=== PATIENT | male | born 1945 | race Caucasian/White ===

== ENCOUNTER 2024-04-08 10:19 | Emergency (ER) | payer OTHER, SELFPAY ==
[2024-04-08] VITALS (10 sets, daily range): BP systolic 141–177; BP diastolic 67–82; PULSE 53–66; RESP 17–18; TEMP 36.6–37; O2SAT 95–99
--- NOTE | 2024-04-08 11:05 | DI.US.S_ITS ---
PROCEDURE: US PERIPH VENOUS LOW EXTREM BI INDICATIONS: swelling TECHNIQUE: Real-time imaging, as well as color and pulse Doppler interrogation, were performed of the deep veins of both legs from the inguinal ligament to the popliteal fossa, with documentation of the visualized calf veins. COMPARISON: None. FINDINGS: Right: The common femoral, femoral, popliteal, and the visualized calf veins are normally compressible, and free of intraluminal thrombus. Color and pulse Doppler demonstrate normal phasic intravascular flow. There is normal augmentation response to distal compression maneuver. Left: The common femoral, femoral, popliteal, and the visualized calf veins are normally compressible, and free of intraluminal thrombus. Color and pulse Doppler demonstrate normal phasic intravascular flow. There is normal augmentation response to distal compression maneuver. IMPRESSION: No findings of deep venous thrombosis in either lower extremity. Dictated by: Marc Alvarez M.D. on 04/08/2024 at 12:13 Approved by: Marc Alvarez M.D. on 04/08/2024 at 12:14
--- NOTE | 2024-04-08 11:07 | DI.RAD.S_ITS ---
PROCEDURE: XR KNEE LT 3V INDICATIONS: fall TECHNIQUE: 3 views of the knee were acquired. COMPARISON: None. FINDINGS: Bones: No fractures or dislocations. 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 No significant patellar subluxation. No suspicious bony lesions. Soft tissues: No significant joint effusion. No suspicious soft tissue calcifications. IMPRESSION: No acute left knee fracture or dislocation. Yvag-ii-qtepjfwn tricompartmental osteoarthritis. No significant joint effusion. Dictated by: Hermes Garrison M.D. on 04/08/2024 at 11:41 Approved by: Hermes Garrison M.D. on 04/08/2024 at 11:42
--- NOTE | 2024-04-08 11:07 | DI.RAD.S_ITS ---
PROCEDURE: XR ANKLE LT MIN 3V INDICATIONS: fall TECHNIQUE: 3 views of the ankle were acquired. COMPARISON: None. FINDINGS: Bones: No fractures or dislocations. Cloj-qv-payyecuo osteoarthritic changes are noted throughout midfoot and hindfoot joints. Ankle mortise is normally aligned. Small plantar and dorsal calcaneal enthesophytes are seen. No suspicious bony lesions. Soft tissues: No tibiotalar joint effusion. Achilles tendon appears normal. IMPRESSION: No acute ankle fracture or dislocation. Gkfx-fy-vadjmfhm midfoot and hindfoot joint osteoarthritis. Tiny plantar and dorsal calcaneal enthesophytes. Dictated by: Hermes Garrison M.D. on 04/08/2024 at 11:40 Approved by: Hermes Garrison M.D. on 04/08/2024 at 11:41
--- NOTE | 2024-04-08 11:08 | DI.RAD.S_ITS ---
PROCEDURE: XR FOOT LT MIN 3V INDICATIONS: fall TECHNIQUE: 3 views of the foot were acquired. COMPARISON: None. FINDINGS: Bones: No fractures or dislocations. Osteoarthritic changes are noted throughout left foot. Tiny plantar and dorsal calcaneal enthesophytes are seen. No suspicious bony lesions. Soft tissues: No tibiotalar joint effusion. Achilles tendon appears normal. IMPRESSION: No acute left foot fracture or dislocation. Left foot osteoarthritis. Tiny plantar and dorsal calcaneal enthesophytes. Dictated by: Hermes Garrison M.D. on 04/08/2024 at 11:42 Approved by: Hermes Garrison M.D. on 04/08/2024 at 11:43
--- NOTE | 2024-04-08 13:32 | ED_ITS ---
HPI - Extremity Injury (Lower) General Chief Complaint: Extremity Injury, Lower Stated Complaint: Both legs are swelling , Left leg is worse Time Seen by Provider: 04/08/24 12:26 Source: patient, RN notes reviewed and old records reviewed Mode of arrival: Ambulatory Limitations: no limitations History of Present Illness HPI Narrative: 79-year-old male with a history of hypertension, denies any history of diabetes, bilateral lower extremity edema and chronic wound that were treated between November and February 2023 with a weepy bilateral legs and treated by wound care until healed. Doing well until he fell about 2 weeks ago onto his left leg causing some injury to the left knee ankle and foot. Since then has had increased swelling and has been painful to ambulate. States he is now starting to have more swelling on both sides they are starting to weep again. No fevers or chills no chest pain or shortness of breath. Patient states no nausea or vomiting. No GI or urinary symptoms. They has been continuing to do compression stockings daily followed by a premade wrap for each leg. They state he has had some increased swelling after his and probably scraped the back of his leg causing a new wound which has been slowly worsening. Patient has noticed some clear drainage but nothing purulent. He states it is painful. Patient states little bit of discomfort when he weightbears with his knee but he was able to walk without much issue. Denies any new or other trauma or injuries. Patient states he was following with Wound Care at another facility for several months. Sounds like they placed Unaboot bilaterally and had about 3 weeks of oral antibiotics initially but did not ever require IV antibiotics or persistent oral antibiotics. [facility]. Related Data Previous Rx's Medication Instructions Recorded bacitracin zinc 500 unit-polymyxin 1 applic topical DAILY #28.3 grams 04/08/24 B 10,000 unit/gram topical ointment (Poly Bacitracin (zinc)) doxycycline hyclate 100 mg tablet 100 mg PO BID #20 tabs 04/08/24 hydrochlorothiazide 25 mg tablet 50 mg (2 x 25 mg) PO DAILY 5 days 04/08/24 #10 tabs Allergies Allergy/AdvReac Type Severity Reaction Status Date / Time iodine Allergy Severe Anaphylaxis Verified 04/08/24 11:12 Review of Systems Review of Systems ROS Unobtainable: All systems reviewed & are unremarkable except as noted in HPI and below Patient History Social History Smoking Status: Never smoker Smoking Status: Never smoker alcohol intake frequency: 0-2 drinks per day Substance Use Type: does not use Exam Narrative Exam Narrative: GENERAL: Alert and oriented x three, mild distress HEENT: Head normocephalic, atraumatic, EOMI, pupils reactive, face symmetric, moist mucous membranes NECK: Supple, full range of motion CARDIOVASCULAR: Regular rate and rhythm without murmurs, rubs or gallops. RESPIRATORY: Breath sounds equal bilaterally, no wheezes rales or rhonchi. ABDOMEN: Soft, nontender. Normoactive bowel sounds all 4 quadrants. No guarding or rebound, rigidity, no mass : No CVA tenderness EXTREMITIES: Normal range of motion, no clubbing. Bilateral lower extremity edema, so some slight erythema bilaterally with some appear to be chronic venous stasis changes with hyperpigmentation and purple discoloration. Patient's left calf has a little bit of a superficial the top layer of the skin has been removed there was no ulceration into the deeper subcutaneous fat. Patient is slightly tender to touch. There is a scant amount of serosanguineous drainage. Neurovascularly intact. 2+ dorsalis pedis bilateral feet. Patient has equal sensation to touch in bilateral feet but states it is decreased in both feet. Full range of motion. NEUROLOGICAL: Cranial nerves II through XII grossly intact. Moving all extremities SKIN: Warm, dry, no petechiae, no rashes or lesions other than noted above. Initial Vital Signs Initial Vital Signs: Vital Signs Temperature 97.8 F 04/08/24 10:35 Pulse Rate 59 L 04/08/24 10:35 Respiratory Rate 17 04/08/24 10:35 Blood Pressure 171/77 H 04/08/24 10:35 Pulse Oximetry 98 04/08/24 10:35 Oxygen Delivery Method Room Air 04/08/24 10:35 Course Orders Ordered: ED Orders 04/08/24 11:05 US periph venous low extrem bi Stat 04/08/24 11:07 XR ankle LT min 3V Stat XR knee LT 3V Stat 04/08/24 11:08 XR foot LT min 3V Stat 04/08/24 14:00 Wound Culture and Gram Stain Stat Discontinued Medications Bacitracin (Bacitracin Oint 0.9 Gm Pckt) 2 applic TOP NOW ONE Stop: 04/08/24 13:51 Last Admin: 04/08/24 14:11 Dose: 2 applic Documented By: TC Vital Signs Vital signs: Vital Signs - 8 hr 04/08/24 11:00 04/08/24 11:01 04/08/24 11:01 Temperature Pulse Rate 55 L 56 L Respiratory Rate Blood Pressure 141/67 H Pulse Oximetry 95 97 Oxygen Delivery Method 04/08/24 11:30 04/08/24 11:30 04/08/24 12:00 Temperature Pulse Rate 56 L 56 L Respiratory Rate Blood Pressure 154/81 H Pulse Oximetry 97 98 Oxygen Delivery Method 04/08/24 12:00 04/08/24 12:30 04/08/24 12:30 Temperature Pulse Rate 55 L Respiratory Rate Blood Pressure 164/77 H 177/82 H Pulse Oximetry 99 Oxygen Delivery Method 04/08/24 13:00 04/08/24 14:11 Temperature 98.6 F Pulse Rate 53 L 58 L Respiratory Rate 18 Blood Pressure 177/82 H Pulse Oximetry 99 98 Oxygen Delivery Method Room Air MDM - Extremity Injury (Lower) Imaging Data US - DVT: Radiologist's Impression: Jaspreet Chacon??79??M??1945 ? Allergy/Adv: iodine Close Foot X-Ray (Signed) Hermes Garrison - 04/08/24 Knee X-Ray (Signed) Hermes Garrison - 04/08/24 Ankle X-Ray (Signed) Hermes Garrison - 04/08/24 Vascular Ultrasound (Signed) Marc Alvarez - 04/08/24 Launch?[place] [address] Ultrasound Report Signed Patient: Jaspreet Chacon MR#: [id number] : 1945 Acct:[id number] Age/Sex: 79 / M Date of Service: 04/08/24 Loc: ED Accession Number: [id number] Procedure: US periph venous low extrem bi Ordering Provider: Jailyn Taveras D.O. PROCEDURE: US PERIPH VENOUS LOW EXTREM BI INDICATIONS: swelling TECHNIQUE: Real-time imaging, as well as color and pulse Doppler interrogation, were performed of the deep veins of both legs from the inguinal ligament to the popliteal fossa, with documentation of the visualized calf veins. COMPARISON: None. FINDINGS: Right: The common femoral, femoral, popliteal, and the visualized calf veins are normally compressible, and free of intraluminal thrombus. Color and pulse Doppler demonstrate normal phasic intravascular flow. There is normal augmentation response to distal compression maneuver. Left: The common femoral, femoral, popliteal, and the visualized calf veins are normally compressible, and free of intraluminal thrombus. Color and pulse Doppler demonstrate normal phasic intravascular flow. There is normal augmentation response to distal compression maneuver. IMPRESSION: No findings of deep venous thrombosis in either lower extremity. Dictated by: Marc Alvarez M.D. on 04/08/2024 at 12:13 Approved by: Marc Alvarez M.D. on 04/08/2024 at 12:14 [facility] Narrative Medical decision making narrative: 79-year-old male with acute on chronic bilateral lower extremity edema p articularly after scraping his leg has a little bit of a wound. He has been doing compression stockings with wrap around them that is premade. He states that is since he has had the abrasion he has not been able to do these has had increased swelling and some breakdown of the skin. Patient appears nontoxic no systemic symptoms. DVT ultrasound bilateral lower extremities is negative X-ray ankle is negative for acute fracture or dislocation [id number] midfoot and hindfoot joint osteoarthritis tiny plantar and dorsal calcaneal enthesophytes. X-ray knee no acute left fracture dislocation [id number] tricompartmental osteoarthritis no significant joint effusion. X-ray foot no acute left foot fracture dislocation left foot osteoarthritis tiny plantar calcaneal enthesophytes. Wound culture was obtained, patient has a superficial skin breakdown but no large ulcer or wound noted. There is some serous drainage. Wound was dressed with bacitracin, patient had dressing placed. Refer to wound care locally. Patient does take HCTZ 25 mg daily so we will give a short course of increased see if this will help with his edema as well. Discussed return precautions all questions answered. Patient family feel comfortable with the plan. faxed form to wound care with patient contact/information. Discharge Plan Departure Patient Disposition: Home Clinical Impression: Bilateral edema of lower extremity, Leg wound, left Activity Restrictions/Additional Instructions: Follow up with wound care, please call today or tomorrow to set up a follow up appointment. Use bacitracin to the affected area on your left lower extremity with dressing changes. Take oral antibiotics until completed. Increase your hydrochlorothiazide 2 tablets or 50 mg once daily x 5 days. Prescriptions sent to [facility] in [place]. Please return for fevers increasing swelling, any foul or purulent drainage, increasing pain, new chest pain or shortness of breath or other new or concerning changes. Prescriptions: New bacitracin zinc-polymyxin B [Poly Bacitracin (zinc)] 500-10,000 unit/gram ointment 1 applic topical DAILY Qty: 28.3 0RF doxycycline hyclate 100 mg tablet 100 mg PO BID Qty: 20 0RF hydrochlorothiazide 25 mg tablet 50 mg PO DAILY 5 Days Qty: 10 0RF Referrals: Tony Hunter MD [Physician] - Stand Alone Forms: Patient Portal/API/Survey
[2024-04-08] MEDS: BACITRACIN OINT 0.9 GM PCKT 2 APPLIC TOP (14:11)
--- NOTE | 2024-04-08 14:27 | PC.NURSE ---
[facility] [place] Note: Referral to Wound Care and demographics faxed.
== END 2024-04-08 14:12 | disposition home or self-care (01) ==
PROVIDERS: Emergency Provider Emergency Medicine
DX: R60.0 Localized edema (principal); S81.802A Unspecified open wound, left lower leg, initial encounter
CPT/HCPCS: 73562; 73610; 73630; 87070; 87075; 87077; 87147; 87186; 87205; 93970; 99282; 99284

== ENCOUNTER 2024-04-20 09:09 | Emergency (ER) | payer OTHER, SELFPAY ==
[2024-04-20] VITALS (13 sets, daily range): BP systolic 113–153; BP diastolic 54–70; PULSE 50–70; RESP 16–17; TEMP 36.6; O2SAT 97–99; BMI 31.1
--- NOTE | 2024-04-20 10:12 | PC.NURSE ---
Addendum entered by Stefanie Nichols R.N. 04/20/24 10:16: No previously known MRSA or staph infection. Original Note: left lower leg swelling, redness, and weeping. Redness and swelling noted n right lower leg as well. Edema noted in bilateral feet as well. Pt states this problem has been going on for a couple of years but has worsened over the past 2-4 weeks. Pt states they are suppose to see wound care but has not heard back in a couple weeks. Pt denies fevers.
[2024-04-20 10:18] LABS: Add Manual Diff / Slide Review NO; Basophils Absolute Auto 100 /uL (0-100); Basophils Percent Auto 1.4 % (0-2); Eosinophils Absolute Auto 500 /uL (0-450); Eosinophils Percent Auto 9.3 % (2-4); Hematocrit 34.5 % (41-53); Hemoglobin 11.7 g/dL (13.5-17.5); Lymphocytes Absolute Auto 1200 /uL (1100-4500); Mean Corpuscular HGB Conc 33.9 % (30-36); Mean Corpuscular Hemoglobin 32.5 PG (26-34); Mean Corpuscular Volume 95.9 fL (80-100); Monocytes Absolute Auto 500 /uL (0-900); Monocytes Percent Auto 8.5 % (3-14); Neutrophils Absolute Auto 3500 /uL (1500-7000); Neutrophils Percent Auto 60.8 % (50-75); Platelet Count 203 X10^3/uL (150-400); Red Blood Cell Count 3.59 X10^6/uL (4.5-5.9); Red Cell Distribution Width 12.7 % (11.6-14.8); White Blood Cell Count 5.8 X10^3/uL (4.5-11.0)
[2024-04-20 10:29] LABS: Alanine Aminotransferase 22 IU/L (<50); Albumin 3.9 g/dL (3.5-5.0); Albumin Globulin Ratio 1.5 (1.0-2.8); Alkaline Phosphatase 82 U/L (38-126); Aspartate Aminotransferase 24 IU/L (17-59); BUN Creatinine Ratio 24.5 (6-22); Bilirubin Total 0.6 mg/dL (0.2-1.3); Blood Urea Nitrogen 36 mg/dL (9-20); Calcium 8.7 mg/dL (8.4-10.2); Carbon Dioxide 20 mmol/L (22-32); Chloride 108 mmol/L (98-107); Estimated Glomerular Filt Rate 49 mL/min (>60); Globulin 2.6 g/dL (1.7-4.1); Glucose 117 mg/dL (80-110); HEMOLYSIS < 15 (0-50); Potassium 4.1 mmol/L (3.4-5.1); Sodium 138 mmol/L (137-145); Total Protein 6.5 g/dL (6.3-8.2)
--- NOTE | 2024-04-20 11:13 | ED_ITS ---
HPI - Skin/Abscess/Foreign Bdy <Malathi Ventura PA-C - Last Filed: 04/20/24 20:12> General Chief complaint: Skin/Abscess/Foreign Body Stated complaint: Left leg lesions growing Time Seen by Provider: 04/20/24 11:10 Source: patient and family Mode of arrival: Family Vehicle History of Present Illness HPI narrative: This is a 79-year-old patient with a history of chronic bilateral lower extremity edema and previous episodes of lower extremity jarrett wounds presenting today with concern for jarrett wounds and pain not getting better at all despite taking antibiotics a few weeks ago. Patient states over the last 3 days he feels the pain in his left leg in his skin of his jarrett and inside of his leg has worsened significantly. To the point where he has limited ambulation in the last 3 days. He states last night he started having pain in the arch of his foot on the inside feels like a sharp pain that is intermittent. He has not sure if anything makes it worse or better. He denies any recent fevers, chills, nausea, vomiting, diarrhea or other symptoms and states he has otherwise been in his usual state of health. His states he has had a similar episode that took weeks to heal with regular trips to wound care. And has chronic problems with his lower extremities in terms of edema and skin discoloration /changes. She has been Re bandaging his leg twice daily. They had a referral placed to wound care at their ER visit about 12 days ago, they state they heard from them once and were told they would get a call back but have not received any call back. Related Data Previous Rx's Medication Instructions Recorded bacitracin zinc 500 unit-polymyxin 1 applic topical DAILY #28.3 grams 04/08/24 B 10,000 unit/gram topical ointment (Poly Bacitracin (zinc)) doxycycline hyclate 100 mg tablet 100 mg PO BID #20 tabs 04/08/24 Allergies Allergy/AdvReac Type Severity Reaction Status Date / Time iodine Allergy Severe Anaphylaxis Verified 04/20/24 09:44 Review of Systems <Malathi Ventura PA-C - Last Filed: 04/20/24 20:12> Review of Systems Narrative: See HPI Patient History <Malathi Ventura PA-C - Last Filed: 04/20/24 20:12> Social History Smoking Status: Never smoker Smoking Status: Never smoker alcohol intake frequency: 0-2 drinks per day Exam <Malathi Ventura PA-C - Last Filed: 04/20/24 20:12> Narrative Exam Narrative: GENERAL: [79] year old patient appears stated age. Well-developed patient, in mild distress. HEAD: Atraumatic. Normocephalic. EYES: Pupils equal round and reactive. Extraocular motions intact. No scleral icterus. No injection or drainage. ENT: Nose without bleeding, purulent drainage. Airway patent. NECK: Trachea midline. Non tender CARDIOVASCULAR: Regular rate and rhythm without murmurs, gallops, or rubs. RESPIRATORY: Clear to auscultation. Breath sounds equal bilaterally. No wheezes, rales, or rhonchi. GASTROINTESTINAL: Abdomen soft, non-tender, nondistended. EXTREMITIES: Chronic venous stasis changes of the shins bilaterally and around the lower calves. Purplish erythematous skin present. More pronounced on the left lower extremity. The left lower extremity from the knee down is notably swollen as compared to the right. There is tenderness with light touch with palpation and mild erythema present proximal to the chronic venous stasis changes. Also on the medial aspect of the calf there are multiple small approximately 1 cm blisters with serosanguineous appearing fluid present, and a few of these are unroofed. Patient has tenderness with palpation under the arch of the foot/midfoot on the medial aspect. Reduced range of motion at the ankle 2nd to calf pain. No edema or joint tenderness. NEURO: AOx3. SKIN: No rash or erythema of visible areas Initial Vital Signs Initial Vital Signs: Vital Signs Pulse Rate 70 04/20/24 09:34 Blood Pressure 139/64 04/20/24 09:34 Pulse Oximetry 97 04/20/24 09:34 <Jailyn Taveras DO - Last Filed: 05/06/24 04:17> Initial Vital Signs Initial Vital Signs: Vital Signs Pulse Rate 70 04/20/24 09:34 Blood Pressure 139/64 04/20/24 09:34 Pulse Oximetry 97 04/20/24 09:34 Course <Malathi Ventura PA-C - Last Filed: 04/20/24 20:12> Course Course Narrative: Did discuss the patient with the attending physician who had previously seen him about 2 weeks ago for similar concern. She agrees with plan for Augmentin and strong encouragement for close wound care follow-up. Orders Ordered: ED Orders 04/20/24 12:09 XR foot LT min 3V Stat Vital Signs Vital signs: Vital Signs - 8 hr 04/20/24 12:30 04/20/24 12:31 04/20/24 12:31 Pulse Rate 52 L 52 L Respiratory Rate Blood Pressure 113/54 L Pulse Oximetry 99 99 Oxygen Delivery Method 04/20/24 13:00 04/20/24 13:01 04/20/24 13:01 Pulse Rate 53 L 52 L Respiratory Rate 17 Blood Pressure 145/67 H Pulse Oximetry 99 99 Oxygen Delivery Method Room Air <Jailyn Taveras DO - Last Filed: 05/06/24 04:17> Orders Ordered: ED Orders 04/20/24 12:09 XR foot LT min 3V Stat Vital Signs Vital signs: Vital Signs - 8 hr 04/20/24 12:30 04/20/24 12:31 04/20/24 12:31 Pulse Rate 52 L 52 L Respiratory Rate Blood Pressure 113/54 L Pulse Oximetry 99 99 Oxygen Delivery Method 04/20/24 13:00 04/20/24 13:01 04/20/24 13:01 Pulse Rate 53 L 52 L Respiratory Rate 17 Blood Pressure 145/67 H Pulse Oximetry 99 99 Oxygen Delivery Method Room Air MDM - Skin/Abscess/Foreign Bdy <Malathi Ventura PA-C - Last Filed: 04/20/24 20:12> Differential Diagnosis Differential diagnosis: Likely abscess of skin or subcutaneous tissue, cellulitis, contact dermatitis and other (Chronic venous stasis changes) Medical Records Attestation: I reviewed the patient's medical records. Lab Data Attestation: I reviewed the patient's lab results. 04/20/24 10:05 04/20/24 10:05 Labs: Lab Results 04/20/24 Range/Units 10:05 WBC 5.8 (4.5-11.0) X10^3/uL RBC 3.59 L (4.5-5.9) X10^6/uL Hgb 11.7 L (13.5-17.5) g/dL Hct 34.5 L (41-53) % MCV 95.9 (80-100) fL MCH 32.5 (26-34) PG MCHC 33.9 (30-36) % RDW 12.7 (11.6-14.8) % Plt Count 203 (150-400) X10^3/uL Neut % (Auto) 60.8 (50-75) % Lymph % (Auto) 20.0 L (25-40) % [place] % (Auto) 8.5 (3-14) % Eos % (Auto) 9.3 H (2-4) % Baso % (Auto) 1.4 (0-2) % Neut # (Auto) 3500 (8904-3183) /uL Lymph # (Auto) 1200 (8372-1767) /uL [place] # (Auto) 500 (0-900) /uL Eos # (Auto) 500 H (0-450) /uL Baso # (Auto) 100 (0-100) /uL Sodium 138 (137-145) mmol/L Potassium 4.1 (3.4-5.1) mmol/L Chloride 108 H (98-107) mmol/L Carbon Dioxide 20 L (22-32) mmol/L BUN 36 H (9-20) mg/dL Creatinine 1.47 H (0.66-1.25) mg/dL Estimated GFR 49 L (>60) mL/min BUN/Creatinine Ratio 24.5 H (6-22) Glucose 117 H (80-110) mg/dL Calcium 8.7 (8.4-10.2) mg/dL Total Bilirubin 0.6 (0.2-1.3) mg/dL AST 24 (17-59) IU/L ALT 22 (<50) IU/L Alkaline Phosphatase 82 (38-126) U/L Total Protein 6.5 (6.3-8.2) g/dL Albumin 3.9 (3.5-5.0) g/dL Globulin 2.6 (1.7-4.1) g/dL Albumin/Globulin Ratio 1.5 (1.0-2.8) Imaging Data Extremity x-ray #1: My Impression: Agree with Radiology interpretation Radiologist's Impression: [address] [address] XRay Report Signed Patient: Jaspreet Chacon MR#: [id number] : 1945 Acct:[id number] Age/Sex: 79 / M Date of Service: 04/20/24 Loc: ED Accession Number: [id number] Procedure: XR foot LT min 3V Ordering Provider: Malathi Ventura PA-C PROCEDURE: XR FOOT LT MIN 3V INDICATIONS: acute mid foot pain; chronic inflammation/edema LE+celluliti TECHNIQUE: 3 views of the foot were acquired. COMPARISON: [facility], CR, XR FOOT LT MIN 3V, 04/08/2024, 11:05. FINDINGS: Bones: No fractures or dislocations. No suspicious bony lesions. Tiny calcaneal and Achilles insertional enthesophytes are shown. There are mild degenerative changes of the dorsal midfoot. There is no cortical erosion or periostitis. Soft tissues: No tibiotalar joint effusion. Achilles tendon appears normal. IMPRESSION: No acute bony abnormality. Specifically, no evidence of osteomyelitis. Dictated by: Jackie Smith M.D. on 04/20/2024 at 11:31 Approved by: Jackie Smith M.D. on 04/20/2024 at 11:32 MDM Narrative Medical decision making narrative: 79-year-old male presents with with concern for leg infection not improving despite taking antibiotics 2 weeks ago. Exam is notable for chronic venous stasis changes and what appears to be evidence of persistent cellulitis. Patient was prescribed doxycycline about 12 days ago which she reports taking in its entirety. Has not been able to perform regular compression dressings of his extremity due to pain for the last few weeks. Did have an ultrasound that was negative for DVT when he was seen in the ER 12 days ago at that time he also was having the same calf pain and swelling. This was not repeated today. Labs today are unremarkable. His vitals and history do not suggest sepsis or severe infection. He did have a new tenderness in his midfoot and x-rays obtained which showed no evidence of osteomyelitis or explanation for his pain. Discussed in detail with the patient and his the importance of persistence with accessing wound care. Provided them again with office numbers and provider numbers to contact. And recommend they call back on Monday 1st thing to work on getting him scheduled. Prescription today for Augmentin as his exam is concerning for persistent cellulitis. Repeat wound cultures not obtained, wound culture from 12 days ago showed staph aureus sensitive to common anti staphylococcal antibiotics. Return precautions provided, follow-up plan discussed, all questions answered. <Jailyn Amrita Taveras, DO - Last Filed: 05/06/24 04:17> Lab Data Labs: Lab Results 04/20/24 Range/Units 10:05 WBC 5.8 (4.5-11.0) X10^3/uL RBC 3.59 L (4.5-5.9) X10^6/uL Hgb 11.7 L (13.5-17.5) g/dL Hct 34.5 L (41-53) % MCV 95.9 (80-100) fL MCH 32.5 (26-34) PG MCHC 33.9 (30-36) % RDW 12.7 (11.6-14.8) % Plt Count 203 (150-400) X10^3/uL Neut % (Auto) 60.8 (50-75) % Lymph % (Auto) 20.0 L (25-40) % [place] % (Auto) 8.5 (3-14) % Eos % (Auto) 9.3 H (2-4) % Baso % (Auto) 1.4 (0-2) % Neut # (Auto) 3500 (9516-7616) /uL Lymph # (Auto) 1200 (0606-1106) /uL [place] # (Auto) 500 (0-900) /uL Eos # (Auto) 500 H (0-450) /uL Baso # (Auto) 100 (0-100) /uL Sodium 138 (137-145) mmol/L Potassium 4.1 (3.4-5.1) mmol/L Chloride 108 H (98-107) mmol/L Carbon Dioxide 20 L (22-32) mmol/L BUN 36 H (9-20) mg/dL Creatinine 1.47 H (0.66-1.25) mg/dL Estimated GFR 49 L (>60) mL/min BUN/Creatinine Ratio 24.5 H (6-22) Glucose 117 H (80-110) mg/dL Calcium 8.7 (8.4-10.2) mg/dL Total Bilirubin 0.6 (0.2-1.3) mg/dL AST 24 (17-59) IU/L ALT 22 (<50) IU/L Alkaline Phosphatase 82 (38-126) U/L Total Protein 6.5 (6.3-8.2) g/dL Albumin 3.9 (3.5-5.0) g/dL Globulin 2.6 (1.7-4.1) g/dL Albumin/Globulin Ratio 1.5 (1.0-2.8) Discharge Plan Departure Patient Disposition: Home Clinical Impression: Cellulitis of left anterior lower leg, Chronic venous stasis dermatitis of both lower extremities, Pain of left midfoot Activity Restrictions/Additional Instructions: *You have been diagnosed with [chronic venous stasis, cellulitis of left lower extremity, left midfoot pain] *What to do: *Please continue to take your regular medications as directed. [1 ] New medication prescriptions sent to your pharmacy: [ Augmentin] [ ] New medication written as a paper prescription [ ] No new medications given *Please follow up with your primary care provider in 2-3 days, call for an appointment. Let them know you were seen in the Emergency Department and that we ask that you be seen in follow up. We will electronically transmit a record of today's note if your PCP is in our system. We took an x-ray of your foot today to further evaluate the potential cause of your pain there. We do not see any concerning signs for infection of the bone. And no definite cause for the source of your new midfoot pain. Your jarrett does still appear likely infected, and I am placing you on another round of antibiotics, a different antibiotic this time. Based on the wound culture obtained at your visit in the ER a few weeks ago it should have been sensitive to the antibiotic you were previously prescribed, however sometimes when you have chronic venous stasis changes healing does take a great deal of time. It is very important that you get into see wound care I would strongly recommend that you call them on Monday morning and reiterate that you were seen in the emergency department again and need to get in to get scheduled and start having regular wound care. We did check some basic labs today and these looked good. I strongly recommend that you add acetaminophen/Tylenol to your pain regimen. You can alternate this with ibuprofen or take them together. Please make sure you are not taking more ibuprofen than the maximum recommended daily dose which I believe is 3200mg. I have included contact information for wound care below. I am not sure which office you contacted previously there are 2 numbers below. Please call them Monday morning. I am placing on new antibiotics that are different than the ones you had previously, however I do feel as we discussed that you are not likely to heal very well without wound care. I hope this begins to improve for you soon. *If you do not have a primary care provider please contact the [facility] Resource line at [phone]. They will ask some questions about your medical history and help get you set up with a doctor in the community. *Return to Emergency Department if you should have any new, worsening or concerning symptoms, such as [fever greater than 101 F, shaking chills, worsening pain, persistent vomiting or other bothersome symptoms] Prescriptions: No Action bacitracin zinc-polymyxin B [Poly Bacitracin (zinc)] 500-10,000 unit/gram ointment 1 applic topical DAILY Qty: 28.3 0RF doxycycline hyclate 100 mg tablet 100 mg PO BID Qty: 20 0RF Referrals: Navin Patel MD [Physician] - (chronic venous stasis with persistent wounds/cellulitis) Tony Hunter MD [Physician] - Stand Alone Forms: Patient Portal/API/Survey ED Sign-out <Jailyn Taveras DO - Last Filed: 05/06/24 04:17> Cosign ED Attending Costyreseature Attestation: I was immediately available in the department for consultation.
--- NOTE | 2024-04-20 12:09 | DI.RAD.S_ITS ---
PROCEDURE: XR FOOT LT MIN 3V INDICATIONS: acute mid foot pain; chronic inflammation/edema LE+celluliti TECHNIQUE: 3 views of the foot were acquired. COMPARISON: [facility], , XR FOOT LT MIN 3V, 04/08/2024, 11:05. FINDINGS: Bones: No fractures or dislocations. No suspicious bony lesions. Tiny calcaneal and Achilles insertional enthesophytes are shown. There are mild degenerative changes of the dorsal midfoot. There is no cortical erosion or periostitis. Soft tissues: No tibiotalar joint effusion. Achilles tendon appears normal. IMPRESSION: No acute bony abnormality. Specifically, no evidence of osteomyelitis. Dictated by: Jackie Smith M.D. on 04/20/2024 at 11:31 Approved by: Jackie Smith M.D. on 04/20/2024 at 11:32
== END 2024-04-20 13:48 | disposition home or self-care (01) ==
PROVIDERS: Emergency Medicine; Emergency Provider Student in an Organized Health Care Education/Training Program
DX: L03.116 Cellulitis of left lower limb (principal); I87.2 Venous insufficiency (chronic) (peripheral); M79.672 Pain in left foot
CPT/HCPCS: 73630; 80053; 85025; 99283; 99284

== ENCOUNTER → 2024-04-25 09:31 | Outpatient (CLI) | payer OTHER, SELFPAY | PROVIDERS: PCP Nurse Practitioner; Referring Provider Emergency Medicine; Visit Provider Surgery | DX: L97.822 Non-pressure chronic ulcer of other part of left lower leg with fat layer exposed (principal); I87.2 Venous insufficiency (chronic) (peripheral); R60.0 Localized edema; L03.116 Cellulitis of left lower limb; M79.662 Pain in left lower leg; I25.10 Atherosclerotic heart disease of native coronary artery without angina pectoris; Z79.2 Long term (current) use of antibiotics | CPT/HCPCS: 11042; 99203; 99213 ==

== ENCOUNTER → 2024-04-29 08:48 | Outpatient (CLI) | payer OTHER, SELFPAY | PROVIDERS: PCP Nurse Practitioner; Referring Provider Emergency Medicine; Visit Provider Physician Assistant | DX: L97.822 Non-pressure chronic ulcer of other part of left lower leg with fat layer exposed (principal); I87.2 Venous insufficiency (chronic) (peripheral); R60.0 Localized edema; M79.662 Pain in left lower leg | CPT/HCPCS: 29581 ==

== ENCOUNTER → 2024-05-06 10:53 | Outpatient (CLI) | payer OTHER, SELFPAY | PROVIDERS: PCP Nurse Practitioner; Referring Provider Emergency Medicine; Visit Provider Surgery | DX: L97.322 Non-pressure chronic ulcer of left ankle with fat layer exposed (principal); I87.2 Venous insufficiency (chronic) (peripheral); R60.0 Localized edema; L53.9 Erythematous condition, unspecified | CPT/HCPCS: 11042; 87070; 87075; 87205; 99213 ==

== ENCOUNTER → 2024-05-10 15:40 | Outpatient (CLI) | payer OTHER, SELFPAY | PROVIDERS: PCP Nurse Practitioner; Referring Provider Nurse Practitioner; Visit Provider Physician Assistant | DX: L97.321 Non-pressure chronic ulcer of left ankle limited to breakdown of skin (principal); I87.2 Venous insufficiency (chronic) (peripheral); L53.9 Erythematous condition, unspecified; R60.0 Localized edema | CPT/HCPCS: 99212 ==

== ENCOUNTER → 2024-05-14 14:47 | Outpatient (CLI) | payer OTHER, SELFPAY | PROVIDERS: PCP Nurse Practitioner; Referring Provider Nurse Practitioner; Visit Provider Surgery | DX: L97.322 Non-pressure chronic ulcer of left ankle with fat layer exposed (principal); L97.812 Non-pressure chronic ulcer of other part of right lower leg with fat layer exposed; I87.2 Venous insufficiency (chronic) (peripheral); R60.0 Localized edema; R23.4 Changes in skin texture | CPT/HCPCS: 11042; 11045; 99213 ==

== ENCOUNTER 2024-05-15 00:45 | Emergency (ER) | payer OTHER, SELFPAY ==
[2024-05-15] VITALS (10 sets, daily range): BP systolic 76–117; BP diastolic 39–81; PULSE 59–79; RESP 16–22; TEMP 36.5; O2SAT 92–98; BMI 31.1
--- NOTE | 2024-05-15 00:56 | EKG_ITS ---
[place] [id number] [place] [id number] Test Date: 2024-05-15 Pat Name: Jaspreet Chacon Department: [facility] Room: Gender: Male Division [employer] Superintendent: NALLELY : 1945 Requested By: Order Number: [id number] Reading MD: Leandro Garnett MD Measurements Intervals [place] Rate: 75 P: 22 WV: 286 QRS: -14 QRSD: 86 T: 35 QT: 412 QTc: 460 Interpretive Statements Sinus rhythm with sinus arrhythmia with 1st degree AV block with occasional premature ventricular complexes Inferior infarct , age undetermined Cannot rule out Anterior infarct , age undetermined NO PRIOR TRACING Electronically Signed On 05-15-2024 6:40:52 PST by Leandro Garnett MD
--- NOTE | 2024-05-15 01:03 | DI.RAD.S_ITS ---
PROCEDURE: XR CHEST 1V INDICATIONS: chest pain TECHNIQUE: One view of the chest was acquired. COMPARISON: None. FINDINGS: Surgical changes and devices: None. Lungs and pleura: Lungs are clear. No pleural effusions or pneumothorax. Mediastinum: Mediastinal contours appear normal. Heart size is enlarged. Bones and chest wall: No suspicious bony lesions. Overlying soft tissues appear unremarkable. IMPRESSION: No acute cardiopulmonary pathology. Dictated by: Hermes Garrison M.D. on 05/15/2024 at 1:32 Approved by: Hermes Garrison M.D. on 05/15/2024 at 1:36
[2024-05-15 01:18] LABS: Add Manual Diff / Slide Review NO; Basophils Absolute Auto 100 /uL (0-100); Eosinophils Absolute Auto 700 /uL (0-450); Eosinophils Percent Auto 11.4 % (2-4); Hemoglobin 10.7 g/dL (13.5-17.5); Lymphocytes Absolute Auto 1400 /uL (1100-4500); Lymphocytes Percent Auto 21.8 % (25-40); Mean Corpuscular HGB Conc 34.5 % (30-36); Mean Corpuscular Hemoglobin 32.8 PG (26-34); Mean Corpuscular Volume 95.1 fL (80-100); Monocytes Absolute Auto 700 /uL (0-900); Monocytes Percent Auto 10.3 % (3-14); Neutrophils Absolute Auto 3500 /uL (1500-7000); Neutrophils Percent Auto 55.5 % (50-75); Platelet Count 186 X10^3/uL (150-400); Red Blood Cell Count 3.26 X10^6/uL (4.5-5.9); Red Cell Distribution Width 13.4 % (11.6-14.8); White Blood Cell Count 6.3 X10^3/uL (4.5-11.0)
[2024-05-15 01:26] LABS: INR 1.1 (0.9-1.3)
[2024-05-15 01:29] LABS: PTT Partial Thromboplastin Tim 28 SECONDS (25.1-36.5)
[2024-05-15 01:31] LABS: Alanine Aminotransferase 21 IU/L (<50); Albumin 3.7 g/dL (3.5-5.0); Albumin Globulin Ratio 1.4 (1.0-2.8); Alkaline Phosphatase 78 U/L (38-126); Aspartate Aminotransferase 25 IU/L (17-59); Bilirubin Total 0.4 mg/dL (0.2-1.3); Blood Urea Nitrogen 30 mg/dL (9-20); Calcium 8.7 mg/dL (8.4-10.2); Carbon Dioxide 23 mmol/L (22-32); Chloride 105 mmol/L (98-107); Creatine Kinase 141 U/L (55-170); Estimated Glomerular Filt Rate 50 mL/min (>60); Globulin 2.7 g/dL (1.7-4.1); Glucose 123 mg/dL (80-110); HEMOLYSIS < 15 (0-50); Lipase 62 U/L (23-300); Magnesium 1.7 mg/dL (1.6-2.3); Potassium 3.8 mmol/L (3.4-5.1); Sodium 134 mmol/L (137-145); Total Protein 6.4 g/dL (6.3-8.2)
[2024-05-15] MEDS: ASPIRIN 81 MG CHEW TAB 324 MG PO (01:35)
[2024-05-15 01:42] LABS: NT-proBNP (BNP-Adult 18+) 196 pg/mL (<450); Troponin I < 0.012 ng/mL (0.01-0.034)
--- NOTE | 2024-05-15 02:40 | ED.CHESTPAIN ---
HPI - Chest Pain General Chief Complaint: Chest Pain Stated Complaint: thinks heart attack Time Seen by Provider: 05/15/24 01:04 Source: patient and family Mode of arrival: Wheelchair Limitations: no limitations History of Present Illness HPI narrative: 79-year-old male with history of coronary artery disease, chronic lower extremity edema (followed by wound care) presents by from home by private vehicle for chest pain. Patient states that around midnight while he was reading in bed he felt lower left-sided chest pain that went down words into his abdomen. He was concerned that he may be having a heart attack. Patient took 6 nitroglycerin tablets and woke his up to bring him to the ER. On arrival patient was noted to be hypotensive, feeling slightly lightheaded. Related Data Previous Rx's Medication Instructions Recorded bacitracin zinc 500 unit-polymyxin 1 applic topical DAILY #28.3 grams 04/08/24 B 10,000 unit/gram topical ointment (Poly Bacitracin (zinc)) doxycycline hyclate 100 mg tablet 100 mg PO BID #20 tabs 04/08/24 Allergies Allergy/AdvReac Type Severity Reaction Status Date / Time iodine Allergy Severe Anaphylaxis Verified 04/20/24 09:44 Patient History Social History Smoking Status: Never smoker Smoking Status: Never smoker alcohol intake frequency: 0-2 drinks per day Exam Initial Vital Signs Initial Vital Signs: Vital Signs Temperature 97.7 F 05/15/24 00:55 Pulse Rate 79 05/15/24 00:55 Respiratory Rate 16 05/15/24 00:55 Blood Pressure 76/39 L 05/15/24 00:55 Pulse Oximetry 98 05/15/24 00:55 Oxygen Delivery Method Room Air 05/15/24 00:55 Const: Awake, alert, no acute distress, nontoxic appearing Cardiac: regular rate, regular rhythm RESP: unlabored, clear bilaterally, no wheezing GI: Soft, midepigastric and left upper quadrant tenderness to deep palpation without rebound or guarding MSK: Bilateral lower extremities wrapped in bandages from wound care Skin: Warm, Dry, intact, no rashes Neuro: AO x3, CN II-XII grossly intact, moves all extremities Course Orders Ordered: Discontinued Medications Aspirin (Aspirin 81 Mg Chew Tab) 324 mg PO NOW ONE Stop: 05/15/24 01:04 Last Admin: 05/15/24 01:35 Dose: 324 mg Documented By: SABAS Vital Signs Vital signs: Vital Signs - 8 hr 05/15/24 00:55 05/15/24 01:19 05/15/24 01:31 Temperature 97.7 F Pulse Rate 79 65 61 Respiratory Rate 16 17 18 Blood Pressure 76/39 L 103/57 L Pulse Oximetry 98 96 95 Oxygen Delivery Method Room Air Room Air 05/15/24 01:32 05/15/24 01:32 05/15/24 02:00 Temperature Pulse Rate 61 61 Respiratory Rate 17 17 Blood Pressure 99/51 L Pulse Oximetry 92 94 Oxygen Delivery Method 05/15/24 02:00 05/15/24 02:30 05/15/24 02:30 Temperature Pulse Rate 59 L Respiratory Rate 20 Blood Pressure 107/52 L 106/55 L Pulse Oximetry 94 Oxygen Delivery Method 05/15/24 03:00 05/15/24 03:00 05/15/24 03:21 Temperature Pulse Rate 64 63 Respiratory Rate 17 20 Blood Pressure 112/54 L Pulse Oximetry 94 Oxygen Delivery Method 05/15/24 03:21 05/15/24 03:30 05/15/24 03:30 Temperature Pulse Rate 61 Respiratory Rate 22 Blood Pressure 117/81 111/56 L Pulse Oximetry 94 Oxygen Delivery Method 05/15/24 04:00 05/15/24 04:00 Temperature Pulse Rate 67 Respiratory Rate 18 Blood Pressure 114/57 L Pulse Oximetry 94 Oxygen Delivery Method MDM - Chest Pain Differential Diagnosis Differential diagnosis: Likely stable angina, unstable angina pectoris and atypical chest pain Lab Data 05/15/24 01:11 05/15/24 01:11 Labs: Lab Results 05/15/24 05/15/24 Range/Units 01:11 03:18 WBC 6.3 (4.5-11.0) X10^3/uL RBC 3.26 L (4.5-5.9) X10^6/uL Hgb 10.7 L (13.5-17.5) g/dL Hct 31.0 L (41-53) % MCV 95.1 (80-100) fL MCH 32.8 (26-34) PG MCHC 34.5 (30-36) % RDW 13.4 (11.6-14.8) % Plt Count 186 (150-400) X10^3/uL Neut % (Auto) 55.5 (50-75) % Lymph % (Auto) 21.8 L (25-40) % [place] % (Auto) 10.3 (3-14) % Eos % (Auto) 11.4 H (2-4) % Baso % (Auto) 1.0 (0-2) % Neut # (Auto) 3500 (6916-7259) /uL Lymph # (Auto) 1400 (5516-3452) /uL [place] # (Auto) 700 (0-900) /uL Eos # (Auto) 700 H (0-450) /uL Baso # (Auto) 100 (0-100) /uL PT 13.0 H (9.4-12.5) SECONDS INR 1.1 (0.9-1.3) APTT 28 (25.1-36.5) SECONDS Sodium 134 L (137-145) mmol/L Potassium 3.8 (3.4-5.1) mmol/L Chloride 105 (98-107) mmol/L Carbon Dioxide 23 (22-32) mmol/L BUN 30 H (9-20) mg/dL Creatinine 1.43 H (0.66-1.25) mg/dL Estimated GFR 50 L (>60) mL/min BUN/Creatinine Ratio 21.0 (6-22) Glucose 123 H (80-110) mg/dL Calcium 8.7 (8.4-10.2) mg/dL Magnesium 1.7 (1.6-2.3) mg/dL Total Bilirubin 0.4 (0.2-1.3) mg/dL AST 25 (17-59) IU/L ALT 21 (<50) IU/L Alkaline Phosphatase 78 (38-126) U/L Total Creatine Kinase 141 (55-170) U/L Troponin I < 0.012 < 0.012 (0.01-0.034) ng/mL NT-Pro-B Natriuret Pep 196 (<450) pg/mL Total Protein 6.4 (6.3-8.2) g/dL Albumin 3.7 (3.5-5.0) g/dL Globulin 2.7 (1.7-4.1) g/dL Albumin/Globulin Ratio 1.4 (1.0-2.8) Lipase 62 (23-300) U/L Imaging Data CT scan - abdomen/pelvis: Radiologist's Impression: PROCEDURE: CT ABDOMEN PELVIS WO CON INDICATIONS: upper abd pain TECHNIQUE: Axial sections were acquired from the lung bases to the pubic symphysis. Coronal and sagittal reformats were performed. For radiation dose reduction, the following was used: automated exposure control, adjustment of mA and/or kV according to patient size. COMPARISON: None. FINDINGS: Image quality: Diagnostic. Lower Chest: Three-vessel coronary artery calcifications. URINARY: Right Kidney: No stones or hydronephrosis. Right Ureter: No hydroureter. Left Kidney: No stones or hydronephrosis. Left Ureter: No hydroureter. Bladder: Normal wall thickness. No stones. ABDOMEN: Liver: No contour-deforming solid mass. Gallbladder: Cholecystectomy. Biliary ducts: No biliary dilation. Pancreas: No ductal dilation. Spleen: Size is within normal limits. Adrenal Glands: No adrenal nodules. Stomach and Bowel: Normal colonic caliber, without significant wall thickening. Normal appendix. Colonic diverticulosis without evidence of diverticulitis. Peritoneum: No abnormal intraperitoneal fluid. No free air. Ventral Wall: No hernia. Abdominal Nodes: No enlarged retroperitoneal or mesenteric lymph nodes. Vessels: Aorta and inferior vena cava are normal in size. PELVIS: Pelvic Organs: Penile prosthesis. Pelvic Nodes: Unremarkable. Miscellaneous: No inguinal hernias are seen. Bones: Degenerative disc disease of the lumbar spine. IMPRESSION: No obstructing stones or hydronephrosis. Colonic diverticulosis without evidence of diverticulitis. Normal appendix. Cholecystectomy. Agree with preliminary report. Dictated by: Marc Alvarez M.D. on 05/15/2024 at 7:11 Approved by: Marc Alvarez M.D. on 05/15/2024 at 7:13 ECG Data Interpretation: Normal sinus rhythm at 75 beats per minute. First-degree AV block present. No ST depressions MDM Narrative Medical decision making narrative: Patient with left lower chest pain. Noted to be hypotensive on arrival, however patient reports that he took 6 nitroglycerin tablets prior to arrival. After being taken to ED bed and laid down patient's blood pressure slowly improved to normal limits. Patient denying abdominal pain, however on exam he was tender in his midepigastric and left upper quadrant regions. Patient's chest pain could have possible GI component. Heart score 4 based on patient's age and risk factors, however story is less suspicious for ACS at this time. Labs reviewed, no significant abnormalities identified. CT shows constipation, no other acute findings. Troponin undetectable x2. Patient has been pain free since arrival to the ED. patient and informed of all lab and imaging findings. Patient relieved to know that it was not appear that he was suffering an ongoing heart attack at this time. ED return precautions discussed with the patient and at bedside. PCP follow up advised. Discharge Plan Departure Patient Disposition: Home Clinical Impression: Chest pain Instructions: DI for Chest Pain Activity Restrictions/Additional Instructions: Your EKG, lab work, and chest x-ray today are normal. I do not know the cause of your chest pain but it does not appear to be a heart attack at this time. I ordered a CT scan due to pain in your abdomen, this showed that you are constipated, but I do not see any other cause of your symptoms at this time. Follow up with your primary care doctor. If you exhibit any new or worsening symptoms please feel free to return to the emergency department for repeat evaluation. Prescriptions: No Action bacitracin zinc-polymyxin B [Poly Bacitracin (zinc)] 500-10,000 unit/gram ointment 1 applic topical DAILY Qty: 28.3 0RF doxycycline hyclate 100 mg tablet 100 mg PO BID Qty: 20 0RF Referrals: Tierney Grant ARNP [Primary Care Provider] - Stand Alone Forms: Patient Portal/API/Survey
[2024-05-15 03:51] LABS: Troponin I < 0.012 ng/mL (0.01-0.034)
== END 2024-05-15 04:30 | disposition home or self-care (01) ==
PROVIDERS: Emergency Provider Emergency Medicine; PCP Nurse Practitioner
DX: R07.9 Chest pain, unspecified (principal); I95.9 Hypotension, unspecified; R10.13 Epigastric pain; R10.12 Left upper quadrant pain
CPT/HCPCS: 36415; 71045; 74176; 80053; 82550; 83690; 83735; 83880; 84484; 85025; 85610; 85730; 93005; 93010; 99284

== ENCOUNTER → 2024-05-16 15:01 | Outpatient (CLI) | payer OTHER, SELFPAY | PROVIDERS: PCP Nurse Practitioner; Referring Provider Emergency Medicine; Visit Provider Surgery | DX: L97.321 Non-pressure chronic ulcer of left ankle limited to breakdown of skin (principal); L97.811 Non-pressure chronic ulcer of other part of right lower leg limited to breakdown of skin; I87.2 Venous insufficiency (chronic) (peripheral); R60.0 Localized edema | CPT/HCPCS: 29581 ==

== ENCOUNTER → 2024-05-21 14:26 | Outpatient (CLI) | payer OTHER, SELFPAY | PROVIDERS: PCP Nurse Practitioner; Referring Provider Emergency Medicine; Visit Provider Surgery | DX: L97.322 Non-pressure chronic ulcer of left ankle with fat layer exposed (principal); L97.812 Non-pressure chronic ulcer of other part of right lower leg with fat layer exposed; I87.2 Venous insufficiency (chronic) (peripheral); R60.0 Localized edema | CPT/HCPCS: 11042; 29581 ==

== ENCOUNTER → 2024-05-23 10:42 | Outpatient (CLI) | payer OTHER, SELFPAY | PROVIDERS: PCP Nurse Practitioner; Referring Provider Emergency Medicine; Visit Provider Surgery | DX: L97.321 Non-pressure chronic ulcer of left ankle limited to breakdown of skin (principal); L97.811 Non-pressure chronic ulcer of other part of right lower leg limited to breakdown of skin; I87.2 Venous insufficiency (chronic) (peripheral); R60.0 Localized edema | CPT/HCPCS: 29580 ==

== ENCOUNTER → 2024-05-27 14:21 | Outpatient (CLI) | payer OTHER, SELFPAY | PROVIDERS: PCP Nurse Practitioner; Referring Provider Emergency Medicine; Visit Provider Surgery | DX: I87.2 Venous insufficiency (chronic) (peripheral) (principal); R60.0 Localized edema | CPT/HCPCS: 29580; 99213 ==

== ENCOUNTER → 2024-06-03 11:13 | Outpatient (CLI) | payer OTHER, SELFPAY | PROVIDERS: PCP Nurse Practitioner; Referring Provider Emergency Medicine; Visit Provider Surgery | DX: I87.2 Venous insufficiency (chronic) (peripheral) (principal); L30.9 Dermatitis, unspecified | CPT/HCPCS: 29580; 99213 ==

== ENCOUNTER → 2024-06-10 15:03 | Outpatient (CLI) | payer OTHER, SELFPAY | PROVIDERS: PCP Nurse Practitioner; Referring Provider Emergency Medicine; Visit Provider Surgery | DX: I87.2 Venous insufficiency (chronic) (peripheral) (principal) | CPT/HCPCS: 99211; 99213 ==

== ENCOUNTER → 2024-06-18 15:25 | Outpatient (CLI) | payer OTHER, SELFPAY | PROVIDERS: PCP Nurse Practitioner; Referring Provider Emergency Medicine; Visit Provider Surgery | DX: I87.2 Venous insufficiency (chronic) (peripheral) (principal); L97.822 Non-pressure chronic ulcer of other part of left lower leg with fat layer exposed; L98.8 Other specified disorders of the skin and subcutaneous tissue; L53.8 Other specified erythematous conditions; L97.312 Non-pressure chronic ulcer of right ankle with fat layer exposed | CPT/HCPCS: 11042; 87070; 87075; 87205; 99213 ==

== ENCOUNTER → 2024-06-21 11:10 | Outpatient (CLI) | payer OTHER, SELFPAY | PROVIDERS: PCP Nurse Practitioner; Referring Provider Emergency Medicine; Visit Provider Physician Assistant | DX: L97.822 Non-pressure chronic ulcer of other part of left lower leg with fat layer exposed (principal); L97.312 Non-pressure chronic ulcer of right ankle with fat layer exposed; I87.2 Venous insufficiency (chronic) (peripheral); L53.9 Erythematous condition, unspecified; R60.0 Localized edema; L08.89 Other specified local infections of the skin and subcutaneous tissue; Z79.2 Long term (current) use of antibiotics | CPT/HCPCS: 29580 ==

== ENCOUNTER → 2024-06-24 11:56 | Outpatient (CLI) | payer OTHER, SELFPAY ==
--- NOTE | 2024-06-24 11:57 | DI.US.S_ITS ---
PROCEDURE: US VENOUS INSUFFICIENCY BILAT INDICATIONS: Non-healing ulcer of LLE TECHNIQUE: Real time scanning was performed of the lower extremity venous system, with imaging documentation, as well as Color and pulse Doppler interrogation. COMPARISON: None. FINDINGS: RIGHT LOWER EXTREMITY: The deep veins are normally compressible, and free of intraluminal thrombus. Color and pulse Doppler demonstrate normal intravascular flow. There is normal augmentation with distal compression maneuver. Deep venous reflux within the mid femoral vein and common femoral vein. Greater saphenous vein (GSV): Saphenofemoral junction (SFJ): 8 mm. Reflux 2.4 seconds. Proximal GSV: 4 mm. Reflux 1.1 seconds. Mid GSV: 3 mm. Reflux 2.5 seconds. Distal GSV: 3 mm. Reflux 0.9 seconds. Calf GSV: 3 mm. Less than 0.5 seconds. Anterior accessory GSV (AAGSV): Proximal AAGSV: 4 mm. Reflux 0.5 seconds. Mid AAGSV: 3 mm. Reflux 0.9 seconds. Distal GSV: 1 mm. No reflux. Small saphenous vein (SSV): Posterior calf, draining into popliteal vein. Posterior calf: 4 mm. Reflux 0.5 seconds. Vein of Giacomini (posterior thigh connection between GSV and SSV): Anatomic variant not seen. Ladies Underwear Operator veins: Location calf, diameter 2 mm. Reflux 0.7 seconds. LEFT LOWER EXTREMITY: The deep veins are normally compressible, and free of intraluminal thrombus. Color and pulse Doppler demonstrate normal intravascular flow. There is normal augmentation with distal compression maneuver. Deep venous reflux within the common femoral vein. Greater saphenous vein (GSV): Saphenofemoral junction (SFJ): 7 mm. Reflux 2.2 seconds. Proximal GSV: 5 mm. No reflux. Mid GSV: 3 mm. Reflux 0.6 seconds. Distal GSV: 4 mm. Reflux 0.6 seconds. Calf GSV: 3 mm. Reflux 0.7 seconds. Anterior accessory GSV (AAGSV): Proximal AAGSV: 3 mm. No reflux. Small saphenous vein (SSV): Posterior calf, draining into popliteal vein. Posterior calf: 4 mm. Reflux 0.7 seconds. Vein of Giacomini (posterior thigh connection between GSV and SSV): SSP compliance attorney mid measuring 5 mm. Reflux 1.1 seconds. Ladies Underwear Operator veins: Location calf, diameter 4 mm. Less than 0.5 seconds. IMPRESSION: 1. Right lower extremity deep venous reflux within the common femoral vein and femoral vein. Reflux within the greater saphenous, short saphenous, and compliance attorney veins. 2. Left lower extremity deep venous reflux within the common femoral vein. Reflux within the greater saphenous and short saphenous veins. Dictated by: Nghia Sanon M.D. on 06/24/2024 at 16:33 Approved by: Nghia Sanon M.D. on 06/24/2024 at 16:49
== END ==
PROVIDERS: PCP Nurse Practitioner; Referring Provider Surgery; Visit Provider Surgery
DX: I87.322 Chronic venous hypertension (idiopathic) with inflammation of left lower extremity (principal); L97.322 Non-pressure chronic ulcer of left ankle with fat layer exposed; L97.822 Non-pressure chronic ulcer of other part of left lower leg with fat layer exposed; I87.2 Venous insufficiency (chronic) (peripheral)
CPT/HCPCS: 93970

== ENCOUNTER → 2024-06-25 09:51 | Outpatient (CLI) | payer OTHER, SELFPAY | PROVIDERS: PCP Nurse Practitioner; Referring Provider Emergency Medicine; Visit Provider Surgery | DX: L97.822 Non-pressure chronic ulcer of other part of left lower leg with fat layer exposed (principal); I87.2 Venous insufficiency (chronic) (peripheral); L97.312 Non-pressure chronic ulcer of right ankle with fat layer exposed; L53.9 Erythematous condition, unspecified; R60.0 Localized edema; L30.9 Dermatitis, unspecified; M79.662 Pain in left lower leg; M25.571 Pain in right ankle and joints of right foot | CPT/HCPCS: 11042 ==

== ENCOUNTER → 2024-06-28 14:51 | Outpatient (CLI) | payer OTHER, SELFPAY | PROVIDERS: PCP Nurse Practitioner; Referring Provider Nurse Practitioner; Visit Provider Surgery | DX: I87.2 Venous insufficiency (chronic) (peripheral) (principal); L97.822 Non-pressure chronic ulcer of other part of left lower leg with fat layer exposed; L97.312 Non-pressure chronic ulcer of right ankle with fat layer exposed; L53.8 Other specified erythematous conditions; L98.8 Other specified disorders of the skin and subcutaneous tissue; R23.4 Changes in skin texture; R60.0 Localized edema | CPT/HCPCS: 29580 ==

== ENCOUNTER → 2024-07-02 09:34 | Outpatient (CLI) | payer OTHER, SELFPAY | PROVIDERS: PCP Nurse Practitioner; Referring Provider Emergency Medicine; Visit Provider Surgery | DX: I87.2 Venous insufficiency (chronic) (peripheral) (principal); L97.822 Non-pressure chronic ulcer of other part of left lower leg with fat layer exposed; L97.312 Non-pressure chronic ulcer of right ankle with fat layer exposed; L53.8 Other specified erythematous conditions; L98.8 Other specified disorders of the skin and subcutaneous tissue | CPT/HCPCS: 97602; 99213 ==

== ENCOUNTER → 2024-07-05 09:36 | Outpatient (CLI) | payer OTHER, SELFPAY | PROVIDERS: PCP Nurse Practitioner; Referring Provider Nurse Practitioner; Visit Provider Physician Assistant | DX: I87.2 Venous insufficiency (chronic) (peripheral) (principal); L97.822 Non-pressure chronic ulcer of other part of left lower leg with fat layer exposed; L97.312 Non-pressure chronic ulcer of right ankle with fat layer exposed; L53.8 Other specified erythematous conditions; L98.8 Other specified disorders of the skin and subcutaneous tissue; R60.0 Localized edema; R23.4 Changes in skin texture | CPT/HCPCS: 29580 ==

== ENCOUNTER → 2024-07-09 10:50 | Outpatient (CLI) | payer OTHER, SELFPAY | PROVIDERS: PCP Nurse Practitioner; Referring Provider Emergency Medicine; Visit Provider Surgery | DX: I87.2 Venous insufficiency (chronic) (peripheral) (principal); I10 Essential (primary) hypertension | CPT/HCPCS: 29580; 99213 ==

== ENCOUNTER → 2024-07-12 09:55 | Outpatient (CLI) | payer OTHER, SELFPAY | PROVIDERS: PCP Nurse Practitioner; Referring Provider Emergency Medicine; Visit Provider Physician Assistant | DX: I87.2 Venous insufficiency (chronic) (peripheral) (principal) | CPT/HCPCS: 29580 ==

== ENCOUNTER → 2024-07-16 10:17 | Outpatient (CLI) | payer OTHER, SELFPAY ==
--- NOTE | 2024-07-16 | OV.WND_ITS ---
PROGRESS NOTE DETAILS PATIENT NAME: SAJNIV CRAMER PATIENT NUMBER: [id number] CLINICIAN: DONOVAN AGUERO PATIENT DATE OF : 1945 PHYSICIAN / OFFICE SWEEPER: SUSAN PATRICK PATIENT SUBJECTIVE CHIEF COMPLAINT THIS INFORMATION WAS OBTAINED FROM THE PATIENT. NONE EDEMA LOWER LEGS ALLERGIES IODINE (SEVERITY: SEVERE, REACTION: ANAPHYLAXIS) HPI THIS INFORMATION WAS OBTAINED FROM THE PATIENT. THE FOLLOWING HPI ELEMENTS WERE DOCUMENTED FOR THE PATIENT'S WOUND: LOCATION: BLE DURATION: 06/05/24 CONTEXT: VENOUS THE PATIENT IS A 79-YEAR-OLD MALE WITH CAD AND CHRONIC VENOUS INSUFFICIENCY WHO RETURNS TODAY FOR FOLLOW UP OF RECURRENT VENOUS ULCERS INVOLVING MEDIAL RIGHT ANKLE AND LEFT LOWER EXTREMITY. PATIENT HAS BEEN RECEIVING DRESSING CHANGES WITH [employer]NA BOOTS. ON TODAY'S VISIT THE PATIENT IS WITHOUT COMPLAINTS. THE PATIENT HAS A PRIOR HISTORY OF HAVING VENOUS ULCERS ON BOTH LOWER EXTREMITIES. THE PATIENT REPORTS A GOOD APPETITE AND DENIES HAVING ANY OTHER RECENT CHANGES IN HIS OVERALL HEALTH. ABIS WERE 1.21 ON THE LEFT AND 1.22 ON THE RIGHT. ON EXAM TODAY THE ULCERS REMAIN HEALED AND THE PERIWOUND SKIN LOOKS GOOD, MILD STASIS DERMATITIS. HE HAS NOT YET MADE AN APPOINTMENT WITH VASCULAR SURGERY. LABS: 06/24/24: VENOUS ULTRASOUND: RIGHT LOWER EXTREMITY DEEP VENOUS REFLUX WITHIN THE COMMON FEMORAL VEIN AND FEMORAL VEIN. REFLUX WITHIN THE GREATER SAPHENOUS, SHORT SAPHENOUS, AND TOWN ADMINISTRATOR VEINS. LEFT LOWER EXTREMITY DEEP VENOUS REFLUX WITHIN THE COMMON FEMORAL VEIN. REFLUX WITHIN THE GREATER SAPHENOUS AND SHORT SAPHENOUS VEINS. 06/18/24: CULTURE GREW SCANT GROWTH MIXED SKIN TIM 05/06/24: CULTURE NEGATIVE 04/20/24: WBC 5.8, HEMOGLOBIN 11.7, HCT 34.5, ELECTROLYTES UNREMARKABLE, BUN 36, CREATININE 1.47, GFR 49, LFTS NORMAL 04/20/24: X-RAY LEFT FOOT SHOWED NO EVIDENCE FOR OSTEOMYELITIS 04/08/24: CULTURE LEFT LEG GREW STAPHYLOCOCCUS AUREUS 04/08/24: VENOUS ULTRASOUND SHOWED NO EVIDENCE FOR DVT IN EITHER LOWER EXTREMITY OBJECTIVE VITALS HEIGHT/LENGTH: 72 IN (182.88 CM), WEIGHT: 239.9 LBS (109.05 KGS), BMI: 32.5, TEMPERATURE: 98.2 ?F SANJIV CRAMER [id number] 1945 (36.78 ?C), PULSE: 63 BPM, RESPIRATORY RATE: 18 BREATHS/MIN, BLOOD PRESSURE: 145/75 MMHG, PULSE OXIMETRY: 97 %. PHYSICAL EXAM CONSTITUTIONAL: VITAL SIGNS REVIEWED AND NOTED. WELL DEVELOPED, WELL NOURISHED, AND IN NO ACUTE DISTRESS. ALERT AND ORIENTED X3. RESPIRATORY: EVEN RESPIRATIONS WITHOUT USE OF ACCESSORY MUSCLES. NO INTERCOASTAL RETRACTIONS NOTED. EVEN AND NON LABORED RESPIRATION. INTEGUMENTARY (HAIR, SKIN): MILD STASIS DERMATITIS. MILD LOWER EXTREMITY SWELLING. SEE WOUND ASSESSMENT. SKIN WARM AND DRY. NO RASHES. NEUROLOGICAL: SENSATION: SYMMETRIC FUNCTION BY INFORMAL OBSERVATION. PSYCHIATRIC: ORIENTATION TO TIME, PLACE AND PERSON: NORMAL AFFECT WITH NORMAL THOUGHT PATTERN. ASSESSMENT ACTIVE PROBLEMS ICD-10 (ENCOUNTER DIAGNOSIS) L97.822 - NON-PRESSURE CHRONIC ULCER OF OTHER PART OF LEFT LOWER LEG WITH FAT LAYER EXPOSED (ENCOUNTER DIAGNOSIS) L97.312 - NON-PRESSURE CHRONIC ULCER OF RIGHT ANKLE WITH FAT LAYER EXPOSED (ENCOUNTER DIAGNOSIS) I87.333 - CHRONIC VENOUS HYPERTENSION (IDIOPATHIC) WITH ULCER AND INFLAMMATION OF BILATERAL LOWER EXTREMITY GENERAL NOTES VENOUS ULCER LEFT MEDIAL LEFT ANKLE HEALED VENOUS ULCERS RIGHT LOWER EXTREMITY HEALED THE FOLLOWING FACTORS HAVE BEEN IDENTIFIED THAT MAY AFFECT WOUND HEALING: DEVITALIZED TISSUE BIOFILM INFECTION SWELLING VENOUS INSUFFICIENCY GOALS REMOVE DEVITALIZED TISSUE REMOVE AND PREVENT BIOFILM REDUCE SWELLING TREAT INFECTION REDUCE PAIN WOUND CLOSURE PREVENT RECURRENCE PLAN: USE VELCRO WRAPS FOR COMPRESSION, DAILY SKIN INSPECTIONS, MAKE APPOINTMENT WITH VASCULAR SURGERY, FOLLOW UP AT WOUND CENTER NEEDED. PLAN ADDITIONAL ORDERS: HAND HYGIENE SANJIV CRAMER [id number] 1945 HAND HYGIENE - WASH HANDS BEFORE AND AFTER WOUND CARE. CALL THE WOUND CENTER AT [phone] IF YOU HAVE SIGNS OR SYMPTOMS OF INFECTION, FEVER CHILLS OR SHAKES, INCREASED DRAINAGE, INCREASED ODOR OR UNUSUAL REDNESS. AFTER WOUND CENTER HOURS PLEASE NOTIFY YOUR PCP OR GO TO THE EMERGENCY ROOM. CLEANSER OTHER ORDER: - MAY SHOWER. WOUNDS HEALED. DRESSING ORDERS OTHER ORDER: - NO DRESSING NEEDED. WOUNDS HEALED. COMPRESSION/EDEMA CONTROL ELEVATE LEG(S) ABOVE THE LEVEL OF THE HEART MUCH POSSIBLE. AVOID STANDING IN ONE POSITION FOR MORE THAN 10 MINUTES. AVOID SITTING WITH LEGS DOWN. DO NOT CROSS LEGS WHEN SITTING. APPLY STOCKINGS/WRAPS IN MORNING AND REMOVE AT BEDTIME. - CIRCAID JUXTALITE WRAPS APPLIED TO BOTH LEGS. FOLLOW-UP APPOINTMENTS DISCHARGE FROM OUTPATIENT SERVICES. OTHER ORDERS: - PLEASE FOLLOW UP WITH VASCULAR SCRIBING ATTESTATION I ATTEST, THE NURSE, THAT I SCRIBED THESE ORDERS FOR THE WOUND CARE PROVIDER. PROVIDER REVIEW AND ATTESTATION: REVIEWED AND EVALUATED LABS. REVIEWED HOSPITAL RECORDS. DISCUSSED THE PLAN OF CARE @ BEDSIDE WITH - THE PATIENT AND I AGREE AND ATTEST TO THE ABOVE INFORMATION PROVIDED FROM OTHER LICENSED PROFESSIONALS. ELECTRONIC SIGNATURE(S) SIGNED BY: DATE: SUSAN PATRICK MD 07/17/2024 16:19:23 (PT) ENTERED BY: SUSAN PATRICK MD ON 07/16/2024 12:21:50 (PT) SANJIV CRAMER [id number] 1945
== END ==
PROVIDERS: PCP Nurse Practitioner; Referring Provider Emergency Medicine; Visit Provider Surgery
DX: I87.2 Venous insufficiency (chronic) (peripheral) (principal)
CPT/HCPCS: 99211; 99213

== ENCOUNTER → 2024-08-08 11:32 | Outpatient (CLI) | payer OTHER, SELFPAY | PROVIDERS: PCP Nurse Practitioner; Referring Provider Nurse Practitioner; Visit Provider Surgery | DX: I87.333 Chronic venous hypertension (idiopathic) with ulcer and inflammation of bilateral lower extremity (principal); L97.311 Non-pressure chronic ulcer of right ankle limited to breakdown of skin; L97.321 Non-pressure chronic ulcer of left ankle limited to breakdown of skin | CPT/HCPCS: 29581; 99213 ==

== ENCOUNTER → 2024-08-13 14:17 | Outpatient (CLI) | payer OTHER, SELFPAY | PROVIDERS: PCP Nurse Practitioner; Referring Provider Nurse Practitioner; Visit Provider Physician Assistant | DX: I87.2 Venous insufficiency (chronic) (peripheral) (principal); L97.811 Non-pressure chronic ulcer of other part of right lower leg limited to breakdown of skin; L97.821 Non-pressure chronic ulcer of other part of left lower leg limited to breakdown of skin | CPT/HCPCS: 29581 ==

== ENCOUNTER → 2024-08-16 13:38 | Outpatient (CLI) | payer OTHER, SELFPAY | PROVIDERS: PCP Nurse Practitioner; Referring Provider Nurse Practitioner; Visit Provider Physician Assistant | DX: I87.2 Venous insufficiency (chronic) (peripheral) (principal); L97.821 Non-pressure chronic ulcer of other part of left lower leg limited to breakdown of skin; L97.811 Non-pressure chronic ulcer of other part of right lower leg limited to breakdown of skin; L53.8 Other specified erythematous conditions; L98.8 Other specified disorders of the skin and subcutaneous tissue; R60.0 Localized edema | CPT/HCPCS: 29581 ==

== ENCOUNTER → 2024-08-20 15:31 | Outpatient (CLI) | payer OTHER, SELFPAY | PROVIDERS: PCP Nurse Practitioner; Referring Provider Nurse Practitioner; Visit Provider Surgery | DX: I87.333 Chronic venous hypertension (idiopathic) with ulcer and inflammation of bilateral lower extremity (principal); L97.311 Non-pressure chronic ulcer of right ankle limited to breakdown of skin; L97.321 Non-pressure chronic ulcer of left ankle limited to breakdown of skin; L53.8 Other specified erythematous conditions; L08.9 Local infection of the skin and subcutaneous tissue, unspecified; L98.8 Other specified disorders of the skin and subcutaneous tissue; R60.0 Localized edema | CPT/HCPCS: 87070; 87075; 87077; 87147; 87186; 87205; 97602; 99213 ==

== ENCOUNTER → 2024-08-23 11:52 | Outpatient (CLI) | payer OTHER, SELFPAY | PROVIDERS: PCP Nurse Practitioner; Referring Provider Nurse Practitioner; Visit Provider Physician Assistant | DX: I87.2 Venous insufficiency (chronic) (peripheral) (principal); L97.811 Non-pressure chronic ulcer of other part of right lower leg limited to breakdown of skin; L53.8 Other specified erythematous conditions; L98.8 Other specified disorders of the skin and subcutaneous tissue; R60.0 Localized edema; L97.821 Non-pressure chronic ulcer of other part of left lower leg limited to breakdown of skin | CPT/HCPCS: 29581 ==

== ENCOUNTER → 2024-08-26 10:56 | Outpatient (CLI) | payer OTHER, SELFPAY | PROVIDERS: PCP Nurse Practitioner; Referring Provider Nurse Practitioner; Visit Provider Surgery | DX: I87.2 Venous insufficiency (chronic) (peripheral) (principal); L97.311 Non-pressure chronic ulcer of right ankle limited to breakdown of skin; L97.321 Non-pressure chronic ulcer of left ankle limited to breakdown of skin; L98.8 Other specified disorders of the skin and subcutaneous tissue; L08.9 Local infection of the skin and subcutaneous tissue, unspecified; R60.0 Localized edema; L53.8 Other specified erythematous conditions | CPT/HCPCS: 97602; 99213 ==

== ENCOUNTER → 2024-08-29 13:37 | Outpatient (CLI) | payer OTHER, SELFPAY | PROVIDERS: PCP Nurse Practitioner; Referring Provider Nurse Practitioner; Visit Provider Surgery | DX: I87.2 Venous insufficiency (chronic) (peripheral) (principal); L97.811 Non-pressure chronic ulcer of other part of right lower leg limited to breakdown of skin; L98.8 Other specified disorders of the skin and subcutaneous tissue; R60.0 Localized edema; M79.604 Pain in right leg; L53.8 Other specified erythematous conditions | CPT/HCPCS: 29581; 87070; 87075; 87077; 87147; 87186; 87205 ==

== ENCOUNTER → 2024-09-02 09:35 | Outpatient (CLI) | payer OTHER, SELFPAY | PROVIDERS: PCP Nurse Practitioner; Referring Provider Nurse Practitioner; Visit Provider Surgery | DX: I87.2 Venous insufficiency (chronic) (peripheral) (principal); L97.821 Non-pressure chronic ulcer of other part of left lower leg limited to breakdown of skin; L97.811 Non-pressure chronic ulcer of other part of right lower leg limited to breakdown of skin; L08.9 Local infection of the skin and subcutaneous tissue, unspecified; L53.8 Other specified erythematous conditions; L98.8 Other specified disorders of the skin and subcutaneous tissue | CPT/HCPCS: 97602; 99213 ==

== ENCOUNTER → 2024-09-04 08:45 | Outpatient (CLI) | payer OTHER, SELFPAY | PROVIDERS: PCP Nurse Practitioner; Referring Provider Nurse Practitioner; Visit Provider Surgery | DX: Z87.2 Personal history of diseases of the skin and subcutaneous tissue (principal); R60.0 Localized edema; L53.9 Erythematous condition, unspecified | CPT/HCPCS: 29581; 99212 ==

== ENCOUNTER → 2024-09-06 10:22 | Outpatient (CLI) | payer OTHER, SELFPAY | PROVIDERS: PCP Nurse Practitioner; Referring Provider Nurse Practitioner; Visit Provider Surgery | DX: L97.821 Non-pressure chronic ulcer of other part of left lower leg limited to breakdown of skin (principal); L97.811 Non-pressure chronic ulcer of other part of right lower leg limited to breakdown of skin; I87.2 Venous insufficiency (chronic) (peripheral); R60.0 Localized edema; L53.9 Erythematous condition, unspecified; M79.661 Pain in right lower leg; M79.662 Pain in left lower leg | CPT/HCPCS: 29581 ==

== ENCOUNTER → 2024-09-09 09:21 | Outpatient (CLI) | payer OTHER, SELFPAY | PROVIDERS: PCP Nurse Practitioner; Referring Provider Nurse Practitioner; Visit Provider Surgery | DX: Z87.2 Personal history of diseases of the skin and subcutaneous tissue (principal); I87.2 Venous insufficiency (chronic) (peripheral); L97.811 Non-pressure chronic ulcer of other part of right lower leg limited to breakdown of skin; L08.9 Local infection of the skin and subcutaneous tissue, unspecified; E66.9 Obesity, unspecified; Z68.32 Body mass index [BMI] 32.0-32.9, adult | CPT/HCPCS: 99213; 99214 ==

== ENCOUNTER → 2024-09-11 10:18 | Outpatient (CLI) | payer OTHER, SELFPAY | PROVIDERS: PCP Nurse Practitioner; Referring Provider Nurse Practitioner; Visit Provider Surgery | DX: I87.2 Venous insufficiency (chronic) (peripheral) (principal); L97.821 Non-pressure chronic ulcer of other part of left lower leg limited to breakdown of skin; L97.811 Non-pressure chronic ulcer of other part of right lower leg limited to breakdown of skin | CPT/HCPCS: 29581 ==

== ENCOUNTER → 2024-09-13 11:46 | Outpatient (CLI) | payer OTHER, SELFPAY | PROVIDERS: PCP Nurse Practitioner; Referring Provider Nurse Practitioner; Visit Provider Surgery | DX: L97.821 Non-pressure chronic ulcer of other part of left lower leg limited to breakdown of skin (principal); L97.811 Non-pressure chronic ulcer of other part of right lower leg limited to breakdown of skin; I87.2 Venous insufficiency (chronic) (peripheral); R60.0 Localized edema; R23.4 Changes in skin texture | CPT/HCPCS: 29581 ==

== ENCOUNTER → 2024-09-16 09:31 | Outpatient (CLI) | payer OTHER, SELFPAY | PROVIDERS: PCP Nurse Practitioner; Referring Provider Nurse Practitioner; Visit Provider Surgery | DX: Z87.2 Personal history of diseases of the skin and subcutaneous tissue (principal) | CPT/HCPCS: 99212; 99213 ==

== ENCOUNTER → 2024-09-19 10:45 | Outpatient (CLI) | payer OTHER, SELFPAY | PROVIDERS: PCP Nurse Practitioner; Referring Provider Nurse Practitioner; Visit Provider Surgery | DX: Z87.2 Personal history of diseases of the skin and subcutaneous tissue (principal); Z09 Encounter for follow-up examination after completed treatment for conditions other than malignant neoplasm | CPT/HCPCS: 99211 ==

== ENCOUNTER → 2024-09-24 15:42 | Outpatient (CLI) | payer OTHER, SELFPAY | LOC: WC 16:05 | PROVIDERS: PCP Nurse Practitioner; Referring Provider Nurse Practitioner; Visit Provider Surgery | DX: Z87.2 Personal history of diseases of the skin and subcutaneous tissue (principal) | CPT/HCPCS: 99212; 99213 ==

== ENCOUNTER → 2024-10-08 08:36 | Outpatient (CLI) | payer OTHER, SELFPAY | PROVIDERS: PCP Nurse Practitioner; Referring Provider Nurse Practitioner; Visit Provider Surgery | DX: R21 Rash and other nonspecific skin eruption (principal); Z87.2 Personal history of diseases of the skin and subcutaneous tissue; Z09 Encounter for follow-up examination after completed treatment for conditions other than malignant neoplasm | CPT/HCPCS: 99211; 99213 ==

== ENCOUNTER → 2024-10-14 07:58 | Outpatient (CLI) | payer OTHER, SELFPAY ==
--- NOTE | 2024-10-14 07:59 | DI.CT.S_ITS ---
PROCEDURE: CT PEL WO CON INDICATIONS: assess malpositioned penile prosthesis TECHNIQUE: After the administration of oral contrast, 5 mm thick sections acquired from the iliac crests to the symphysis. 5 mm coronal and sagittal reformats were then performed. For radiation dose reduction, the following was used: automated exposure control, adjustment of mA and/or kV according to patient size. COMPARISON: None. FINDINGS: Image quality: Diagnostic. PELVIS: Peritoneum and Bowel: Bowel loops demonstrate normal wall thickness and caliber. Scattered colonic diverticuli without evidence of diverticulitis. No free fluid or air. The appendix is normal. Pelvic Organs: No pelvic mass. Penile implant with reservoir in the right scrotum. Penile implant is in expected position and has expected CT appearance. Bladder: Normal wall thickness, accounting for underdistension. No perivesicular fat stranding. Pelvic Nodes: Enlarged bilateral inguinal lymph nodes with largest right no measuring 1.6 centimeters in short axis and largest left node measuring 1.5 centimeters in short axis. Miscellaneous: No inguinal hernias are seen. Atherosclerotic calcifications in the pelvic vasculature and visualized lower extremity vasculature. Bones: No aggressive osseous abnormality. Spine degenerative disc disease and facet arthropathy. Partially visualized L4-L5 fixation hardware. Bilateral hip osteoarthritis. IMPRESSION: Penile implant in expected position. Bilateral inguinal lymphadenopathy which could be reactive or neoplastic. Colonic diverticulosis without evidence of diverticulitis. Dictated by: Mague Bobby MD, PhD on 10/15/2024 at 10:24 Approved by: Mague Bobby MD, PhD on 10/15/2024 at 10:28
== END ==
LOC: CT 07:59
PROVIDERS: PCP Nurse Practitioner; Referring Provider Urology; Visit Provider Urology
DX: Z01.89 Encounter for other specified special examinations (principal); K57.90 Diverticulosis of intestine, part unspecified, without perforation or abscess without bleeding; R59.0 Localized enlarged lymph nodes
CPT/HCPCS: 72192

== ENCOUNTER 2024-11-23 15:57 | Emergency (ER) | payer OTHER, SELFPAY ==
[2024-11-23 16:10] VITALS: BP 144/63; PULSE 67; RESP 16; TEMP 36.7; O2SAT 97; BMI 32.5
--- NOTE | 2024-11-23 16:15 | DI.RAD.S_ITS ---
PROCEDURE: XR CHEST 2V INDICATIONS: cough x1 wk/ asthma TECHNIQUE: 2 views of the chest were acquired. COMPARISON: [facility], , XR CHEST 1V, 05/15/2024, 1:04. FINDINGS: Surgical changes and devices: None. Lungs and pleura: Lungs are hypoinflated but clear. No pleural effusions or pneumothorax. Mediastinum: Mediastinal contours are normal. Heart size is normal. Bones and chest wall: No suspicious bony abnormalities. Soft tissues appear unremarkable. IMPRESSION: No acute cardiopulmonary abnormality is seen. Dictated by: Jackie Smith M.D. on 11/23/2024 at 16:01 Approved by: Jackie Smith M.D. on 11/23/2024 at 16:03
[2024-11-23 16:57] LABS: Influenza A - CEPHEID Flu A NEGATIVE (NEGATIVE); Influenza B - CEPHEID Flu B NEGATIVE (NEGATIVE)
[2024-11-23 16:58] LABS: COVID-19 CEPHEID 4-PLEX PCR Negative (Negative)
--- NOTE | 2024-11-23 17:26 | ED.URI ---
HPI - URI/Sore Throat General Chief Complaint: Upper Respiratory Symptoms Stated Complaint: chest congestion, coughing up blood, asthma Time Seen by Provider: 11/23/24 16:39 History of Present Illness HPI Narrative: Mr. Chacon is a pleasant 71-year-old male with a past medical history of CAD, lower extremity edema, asthma who presents to the emergency department for productive cough x5 days. Patient is on disability because of his asthma, uses for different inhalers every day, and over the last 4-5 days has been experiencing a productive cough with green sputum and occasional streaks of blood and increased wheezing. Denies fevers or known sick contacts. States it in the past he is required azithromycin for pneumonia which is what he is concerned for today. No chest pain, vomiting, sore throat, ear pain, fevers shortness of breath. No history of diabetes. Past smoker. Related Data Previous Rx's ?Medication ?Instructions ?Recorded bacitracin zinc 500 unit-polymyxin 1 applic topical DAILY #28.3 grams 04/08/24 B 10,000 unit/gram topical ointment (Poly Bacitracin (zinc)) doxycycline hyclate 100 mg tablet 100 mg PO BID #20 tabs 04/08/24 azithromycin 250 mg tablet 250 mg PO DAILY 4 days #4 tabs 11/23/24 benzonatate 100 mg capsule 100 mg PO BID-TID PRN cough #20 11/23/24 caps prednisone 20 mg tablet 40 mg (2 x 20 mg) PO DAILY 5 days 11/23/24 #10 tabs Allergies Allergy/AdvReac Type Severity Reaction Status Date / Time iodine Allergy Severe Anaphylaxis Verified 04/20/24 09:44 Review of Systems Review of Systems ROS Unobtainable: All systems reviewed & are unremarkable except as noted in HPI and below Patient History alcohol intake frequency: 0-2 drinks per day Exam Narrative Exam Narrative: GENERAL: 79 year old patient appears stated age. Well-developed patient, in no acute distress. HEAD: Atraumatic. Normocephalic. EYES: No scleral icterus. No injection or drainage. NECK: Trachea midline. Cervical ROM intact. CARDIOVASCULAR: Regular rate and rhythm. RESPIRATORY: ?Nonlabored respirations. ?Occasional productive cough. Speaking in clear, full sentences. ?Patient has expiratory wheezing in all 4 lung joy, faint coarse breath sounds in right lower lobe. GASTROINTESTINAL: Abdomen soft, non-tender, nondistended. EXTREMITIES: Bilateral lower extremity compression stockings are in place. NEURO: AOx3. ?Clear speech. ?Moves all 4 extremities appropriately. SKIN: No rash or erythema of visible areas Initial Vital Signs Initial Vital Signs: Vital Signs Temperature 98.0 F 11/23/24 16:10 Pulse Rate 67 11/23/24 16:10 Respiratory Rate 16 11/23/24 16:10 Blood Pressure 144/63 H 11/23/24 16:10 Pulse Oximetry 97 11/23/24 16:10 Oxygen Delivery Method Room Air 11/23/24 16:10 Course Orders Ordered: ED Orders 11/23/24 16:13 Covid-19 + FLU A/B + RSV - PCR Stat 11/23/24 16:15 XR chest 2V Stat Discontinued Medications Albuterol/Ipratropium (Albuterol/Ipratropium 3 Ml Ampul) 3 ml INH NOW ONE Stop: 11/23/24 17:37 Last Admin: 11/23/24 17:54 Dose: 3 ml Documented By: MEL Azithromycin (Azithromycin 250 Mg Tablet) 500 mg PO NOW ONE Stop: 11/23/24 17:37 Last Admin: 11/23/24 17:46 Dose: 500 mg Documented By: KENNY Prednisone (Prednisone 20 Mg Tablet) 40 mg PO NOW ONE Stop: 11/23/24 17:37 Last Admin: 11/23/24 17:46 Dose: 40 mg Documented By: KENNY Vital Signs Vital signs: Vital Signs - 8 hr 11/23/24 16:10 11/23/24 17:28 11/23/24 17:53 Temperature 98.0 F 98.2 F Pulse Rate 67 60 62 Respiratory Rate 16 20 20 Blood Pressure 144/63 H 140/64 Pulse Oximetry 97 97 99 Oxygen Delivery Method Room Air Room Air Room Air 11/23/24 19:05 Temperature 98.1 F Pulse Rate 59 L Respiratory Rate 19 Blood Pressure 150/67 H Pulse Oximetry 96 Oxygen Delivery Method Room Air MDM - URI/Sore Throat Medical Records Attestation: I reviewed the patient's medical records. Lab Data Labs: Lab Results 11/23/24 Range/Units 16:13 SARS-CoV-2 (PCR) Negative (Negative) Influenza A (RT-PCR) Flu a negative (NEGATIVE) Influenza B (RT-PCR) Flu b negative (NEGATIVE) RSV (PCR) Negative (Negative) Imaging Data Chest x-ray: Radiologist's Impression: PROCEDURE: XR CHEST 2V INDICATIONS: cough x1 wk/ asthma TECHNIQUE: 2 views of the chest were acquired. COMPARISON: [facility], , XR CHEST 1V, 05/15/2024, 1:04. FINDINGS: Surgical changes and devices: None. Lungs and pleura: Lungs are hypoinflated but clear. No pleural effusions or pneumothorax. Mediastinum: Mediastinal contours are normal. Heart size is normal. Bones and chest wall: No suspicious bony abnormalities. Soft tissues appear unremarkable. IMPRESSION: No acute cardiopulmonary abnormality is seen. Dictated by: Jackie Smith M.D. on 11/23/2024 at 16:01 Approved by: Jackie Smith M.D. on 11/23/2024 at 16:03 [facility] Narrative Medical decision making narrative: 71-year-old male with a past medical history of CAD, lower extremity edema, asthma who presents to the emergency department for productive cough x5 days. Differential diagnosis includes but isn't limited to viral syndrome, bronchitis, reactive airway disease, asthma exacerbation, COPD exacerbation, pneumonia, etc. On exam the patient is in no acute distress, nontoxic appearing, vital signs appropriate. He has no increased work of breathing, in no respiratory distress. Patient does have expiratory wheezing in all lung joy. Viral swab and x-ray ordered, we will treat with DuoNeb, prednisone and azithromycin. Patient feeling much improved after ED treatment. Repeat lung auscultation reveals only faint wheezing in the left upper lung joy, the remainder of the lungs are clear. X-ray today reveals no acute cardiac abnormality however given his history of asthma/COPD and increased productive sputum, we will treat with azithromycin in addition to prednisone and continued use of home inhalers. Recommended increase hydration, warm tea with honey to help with mucus production and prescribed benzonatate to use occasionally as needed for cough suppressant. Discussed strict ED return precautions and follow up with PCP. All questions answered, patient feels much better and is agreeable with the plan and stable for discharge home. Discharge Plan Departure Patient Disposition: Home Clinical Impression: Bronchitis Asthma exacerbation Qualifiers: Asthma severity: unspecified severity Asthma persistence: unspecified Qualified Code(s): J45.901 - Unspecified asthma with (acute) exacerbation Instructions: DI for Acute Bronchitis Activity Restrictions/Additional Instructions: Dear Mr. Chacon, Thank you for coming to the emergency department. Today you were evaluated for a wet cough. Your x-ray overall is reassuring and he tested negative for COVID/flu/RSV. Your symptoms are consistent with bronchitis and an exacerbation of your asthma. Please complete the full course of antibiotics, steroids and continue using your inhalers. You may use the cough medicine if needed. Please increase your hydration and use warm tea with honey to help thin mucus secretions. Please follow up with your primary care doctor within the next 2-3 days for ER follow-up. (If you do not have a PCP you can call [phone]. ?to schedule an appointment with an [facility] Primary Care Provider) IF YOU DEVELOP ANY NEW OR WORSENING SYMPTOMS, RETURN TO THE ER! Please read the attached instructions, they highlight more specific treatments and interventions for you at home. Thank you for letting me participate in your care, Gayathri Beltrán PA-C Prescriptions: New azithromycin 250 mg tablet 250 mg PO DAILY 4 Days Qty: 4 0RF Rx Instructions: start on 11/24/24 prednisone 20 mg tablet 40 mg PO DAILY 5 Days Qty: 10 0RF benzonatate 100 mg capsule 100 mg PO BID-TID PRN (Reason: cough) Qty: 20 0RF No Action bacitracin zinc-polymyxin B [Poly Bacitracin (zinc)] 500-10,000 unit/gram ointment 1 applic topical DAILY Qty: 28.3 0RF doxycycline hyclate 100 mg tablet 100 mg PO BID Qty: 20 0RF Referrals: Tierney Grant ARNP [Primary Care Provider, Medical] Stand Alone Forms: Patient Portal/API
[2024-11-23 17:28] VITALS: BP 140/64; PULSE 60; RESP 20; TEMP 36.8; O2SAT 97
[2024-11-23] MEDS: AZITHROMYCIN 250 MG TABLET 500 MG PO (17:46)
[2024-11-23 17:53] VITALS: PULSE 62; RESP 20; O2SAT 99
[2024-11-23] MEDS: ALBUTEROL/IPRATROPIUM 3 ML AMPUL INH (17:54)
--- NOTE | 2024-11-23 18:03 | RT ---
pt lauren oreilly well, on room air with no distress noted.
[2024-11-23 19:05] VITALS: BP 150/67; PULSE 59; RESP 19; TEMP 36.7; O2SAT 96
== END 2024-11-23 19:06 | disposition home or self-care (01) ==
PROVIDERS: Family Medicine; Emergency Provider Physician Assistant; PCP Nurse Practitioner
DX: J45.901 Unspecified asthma with (acute) exacerbation (principal); J20.9 Acute bronchitis, unspecified
CPT/HCPCS: 71046; 87637; 94640; 99283

== ENCOUNTER → 2025-01-27 08:40 | Outpatient (CLI) | payer OTHER, SELFPAY | PROVIDERS: Family Provider Nurse Practitioner; PCP Nurse Practitioner; Referring Provider Nurse Practitioner; Visit Provider Surgery | DX: I87.2 Venous insufficiency (chronic) (peripheral) (principal); L97.312 Non-pressure chronic ulcer of right ankle with fat layer exposed; L97.322 Non-pressure chronic ulcer of left ankle with fat layer exposed; L81.8 Other specified disorders of pigmentation; R60.0 Localized edema; I25.10 Atherosclerotic heart disease of native coronary artery without angina pectoris | CPT/HCPCS: 11042; 87070; 87077; 87147; 87186; 87205; 99213 ==

== ENCOUNTER → 2025-01-30 08:42 | Outpatient (CLI) | payer OTHER, SELFPAY | LOC: WC 08:44 | PROVIDERS: Family Provider Nurse Practitioner; PCP Nurse Practitioner; Referring Provider Nurse Practitioner; Visit Provider Surgery | DX: L97.822 Non-pressure chronic ulcer of other part of left lower leg with fat layer exposed (principal); L97.812 Non-pressure chronic ulcer of other part of right lower leg with fat layer exposed; I87.2 Venous insufficiency (chronic) (peripheral); R60.0 Localized edema | CPT/HCPCS: 29580 ==

== ENCOUNTER → 2025-02-03 08:20 | Outpatient (CLI) | payer OTHER, SELFPAY | LOC: WC 08:20 | PROVIDERS: Family Provider Nurse Practitioner; PCP Nurse Practitioner; Referring Provider Nurse Practitioner; Visit Provider Surgery | DX: I87.2 Venous insufficiency (chronic) (peripheral) (principal); L97.812 Non-pressure chronic ulcer of other part of right lower leg with fat layer exposed; L98.8 Other specified disorders of the skin and subcutaneous tissue; R60.0 Localized edema | CPT/HCPCS: 97602; 99213 ==

== ENCOUNTER → 2025-02-06 15:57 | Outpatient (CLI) | payer OTHER, SELFPAY | LOC: WC 15:58 | PROVIDERS: Family Provider Nurse Practitioner; PCP Nurse Practitioner; Referring Provider Nurse Practitioner; Visit Provider Surgery | DX: I87.2 Venous insufficiency (chronic) (peripheral) (principal); L97.812 Non-pressure chronic ulcer of other part of right lower leg with fat layer exposed; L98.8 Other specified disorders of the skin and subcutaneous tissue; R60.0 Localized edema; R21 Rash and other nonspecific skin eruption | CPT/HCPCS: 29580; 99214 ==

== ENCOUNTER → 2025-02-10 15:56 | Outpatient (CLI) | payer OTHER, SELFPAY | LOC: WC 15:57 | PROVIDERS: Family Provider Nurse Practitioner; PCP Nurse Practitioner; Referring Provider Nurse Practitioner; Visit Provider Surgery | DX: I87.2 Venous insufficiency (chronic) (peripheral) (principal); L98.8 Other specified disorders of the skin and subcutaneous tissue; R60.0 Localized edema | CPT/HCPCS: 29580; 99213 ==

== ENCOUNTER → 2025-02-13 08:38 | Outpatient (CLI) | payer OTHER, SELFPAY | LOC: WC 08:40 | PROVIDERS: Family Provider Nurse Practitioner; PCP Nurse Practitioner; Referring Provider Nurse Practitioner; Visit Provider Surgery | DX: I87.2 Venous insufficiency (chronic) (peripheral) (principal) | CPT/HCPCS: 99213 ==

== ENCOUNTER → 2025-02-17 09:30 | Outpatient (CLI) | payer OTHER, SELFPAY | LOC: WC 09:30 | PROVIDERS: Family Provider Nurse Practitioner; PCP Nurse Practitioner; Referring Provider Nurse Practitioner; Visit Provider Surgery | DX: I87.2 Venous insufficiency (chronic) (peripheral) (principal); L97.312 Non-pressure chronic ulcer of right ankle with fat layer exposed; L97.322 Non-pressure chronic ulcer of left ankle with fat layer exposed | CPT/HCPCS: 99212; 99213 ==

== ENCOUNTER → 2025-02-24 12:25 | Outpatient (CLI) | payer OTHER, SELFPAY ==
--- NOTE | 2025-02-24 12:27 | DI.ECHO.S_ITS ---
[facility] +---------+ Hospital : : [address] : : [place] : : [id number] : : Phone: [phone] Echocardiogram Report + + :Name: SANJIV CRAMER Study Date: 02/24/2025 Height: 72 in : :Hospital ReadingLocation: Weight: 224 lb : : Gender: Male BSA: 2.2 m2 : :: 1945 Age: 79 yrs BP: 140/72 mmHg: :Ordering Physician: Alireza, : :Linh Performed By: James Galvez : :Referring: Linh Lay : + + Interpretation Summary Mild concentric left ventricular hypertrophy with ejection fraction 55-60%. Mild aortic regurgitation. Mild mitral regurgitation. Mild tricuspid regurgitation. The right ventricular systolic pressure is estimated to be at least 46 mmHg based on an estimated right atrial pressure of 15 mm Hg. Procedure: A two-dimensional transthoracic echocardiogram with color flow and Doppler was performed. The study quality was technically adequate. There is no prior echocardiogram noted for this patient. The heart rate ranged between 58-65 bpm during the study. Left Ventricle: The left ventricle is normal in size. There is mild concentric left ventricular hypertrophy. The ejection fraction is estimated to be 55-60%. There are no focal wall motion abnormalities. Diastolic function is indeterminate. Right Ventricle: The right ventricle is normal in size and function. Atria: The left atrial size is normal. Right atrial size is normal. There is no Doppler evidence for an interatrial shunt. Mitral Valve: The mitral valve leaflets appear to open well. There is no mitral valve stenosis. There is mild mitral regurgitation. Aortic Valve: The aortic valve is trileaflet. The aortic valve opens well. There is no aortic valve stenosis. There is mild aortic regurgitation. Tricuspid Valve: The tricuspid valve is not well visualized, but is grossly normal. There is mild tricuspid regurgitation. The right ventricular systolic pressure is estimated to be at least 46 mmHg based on an estimated right atrial pressure of 15 mm Hg. Pulmonic Valve: The pulmonic valve is not well seen, but is grossly normal. There is trace pulmonic regurgitation. Great Vessels: The aortic root is normal size. The ascending aorta is normal in size. The aortic arch could not be visualized. The IVC is dilated (diameter is greater than 2.1 cm) and it collapses less than 50% with a sniff. This suggests a high right atrial pressure of 15 mm Hg. Pericardium/ Pleura There is no pericardial effusion. MMode/2D Measurements & Calculations LVIDd: 6.0 cm LVOT diam: 2.4 cm LVIDs: 3.7 cm Ao root diam: 4.4 cm FS: 39.3 % asc Aorta Diam: 4.1 cm IVSd: 1.1 cm LVPWd: 0.97 cm LV lerma. diameter/BSA (cm/m^2): 2.7 LV sys. diameter/BSA (cm/m^2): 1.6 LA A2 area: 20.7 cm2 RA long axis: 7.8 cm LA A4 area: 22.7 cm2 RA area: 24.5 cm2 LA length (vol): 6.4 cm RA vol: 66.0 ml LA vol: 62.8 ml RA : 29.5 ml/m2 LA vol index: 28.1 ml/m2 IVC diam: 2.3 cm RVD1 (basal): 2.8 cm RVD2 (mid): 2.9 cm TAPSE: 2.1 cm Doppler Measurements & Calculations Ao V2 max: 116.6 cm/sec LVOT Max Pepe: 87.5 cm/sec Ao V2 mean: 89.7 cm/sec LV V1 max P.1 mmHg Ao max P.4 mmHg LV V1 VTI: 19.7 cm Ao mean P.4 mmHg MANUEL(I,D): 3.1 cm2 Ao V2 VTI: 28.2 cm MANUEL(V,D): 3.3 cm2 sev ratio: 0.70 MANUEL indexed to BSA (cm^2/m^2): 1.4 AI P1/2t: 552.9 msec AI dec slope: 201.7 cm/sec2 MV E max pepe: 88.7 cm/sec TR max pepe: 277.3 cm/sec MV A max peep: 47.0 cm/sec TR max P.8 mmHg MV E/A: 1.9 Med Peak E' Pepe: 8.9 cm/sec E/E' med: 10.0 Lat Peak E' Pepe: 7.8 cm/sec E/E' lat: 11.3 E/e' average: 10.6 MV dec time: 0.15 sec SV(LVOT): 86.2 ml Electronically signed by: Erika Alberto on Reading Physician:02/24/2025 03:49 PM
== END ==
PROVIDERS: Family Provider Nurse Practitioner; PCP Nurse Practitioner; Referring Provider Nurse Practitioner; Visit Provider Physician Assistant Surgical
DX: I08.3 Combined rheumatic disorders of mitral, aortic and tricuspid valves (principal); I73.9 Peripheral vascular disease, unspecified
CPT/HCPCS: 93306

== ENCOUNTER → 2025-04-09 08:51 | Outpatient (CLI) | payer OTHER, SELFPAY ==
[2025-04-09 09:22] LABS: Add Manual Diff / Slide Review NO; Hematocrit 31.8 % (41-53); Hemoglobin 10.9 g/dL (13.5-17.5); Lymphocytes Absolute Auto 1100 /uL (1100-4500); Mean Corpuscular HGB Conc 34.3 % (30-36); Mean Corpuscular Hemoglobin 31.9 PG (26-34); Mean Corpuscular Volume 92.9 fL (80-100); Platelet Count 216 X10^3/uL (150-400)
== END ==
PROVIDERS: Family Provider Nurse Practitioner; PCP Nurse Practitioner; Referring Provider Internal Medicine Allergy & Immunology; Visit Provider Internal Medicine Allergy & Immunology
DX: J45.50 Severe persistent asthma, uncomplicated (principal)
CPT/HCPCS: 36415; 82785; 85025; 85651; 86003; 86140; 86256